=== PATIENT | female | born 1955 | race Caucasian/White ===

== ENCOUNTER 2016-10-16 10:57 | Outpatient (CLI) | payer SELFPAY ==
[2016-10-16] MEDS ORDERED: SODIUM CHLORIDE 0.9% 1,000 ML BAG IVS ONE (11:20)
[2016-10-16] MEDS ORDERED: ONDANSETRON INJ 4 MG/2 ML VIAL IV ONE (11:21)
== END 2016-10-16 12:25 | disposition home or self-care (01) ==
LOC: TXRM 10:57
PROVIDERS: ATTEND Nurse Practitioner Family
DX: E86.0 Dehydration (principal)

== ENCOUNTER → 2016-10-20 | Outpatient (CLI) | payer SELFPAY | LOC: YCFC.O 09:53 | PROVIDERS: ATTEND Nurse Practitioner Family | DX: J44.1 Chronic obstructive pulmonary disease with (acute) exacerbation (principal) ==

== ENCOUNTER 2016-10-21 09:45 | Inpatient (IN) | payer OTHER, SELFPAY ==
[2016-10-21] MEDS ORDERED: IPRATROPIUM/ALBUTEROL 3 ML VIAL NEB ONE (09:55)
--- NOTE | 2016-10-21 10:37 | RAD ---
EXAM DESCRIPTION: XR CHEST 2 VIEWS CLINICAL HISTORY: sob COMPARISON: None Available. TECHNIQUE: PA/lateral FINDINGS: There is no cardiac or pulmonary abnormality. The lungs are clear. There is no effusion. IMPRESSION: No acute findings on today's study. Electronically signed by: Darshan Rai MD 10/21/2016 10:35
[2016-10-21] MEDS ORDERED: ONDANSETRON ODT 8 MG TAB SL SCH (11:00)
[2016-10-21] MEDS ORDERED: CEFEPIME 1 GM in SODIUM CHLORIDE 0.9% 50ML 50 ML IVPB ONE (11:22)
[2016-10-21] MEDS ORDERED: AZITHROMYCIN IV 500 MG in SODIUM CHLORIDE 0.9% 250ML 250 ML IVPB ONE (11:22)
[2016-10-21] MEDS ORDERED: methylPREDNISolone SODIUM SUC 125 MG/2 ML VIAL IV ONE (11:22)
[2016-10-21] MEDS ORDERED: OSELTAMIVIR 75 MG CAP PO ONE (11:22)
--- NOTE | 2016-10-21 11:29 | ED.PDOC ---
History of Present Illness - General Chief Complaint: Respiratory Problem Stated Complaint: difficulty breathing, low BPs at home Time Seen by Provider: 10/21/16 09:54 Source: patient, family Exam Limitations: no limitations - History of Present Illness Initial Comments: The patient is a 60-year-old female presenting to the emergency room from home. She has been seen several times over the last 3 weeks at her primary care doctor's office for recurrent episodes of difficulty with breathing. She has also had gastroenteritis about a week ago. She has continued to smoke up until yesterday. She has been wearing her oxygen at night but not during the day. Oxygen saturations are down around 85% here today without oxygen. She has been doing her breathing treatments every 4 hours which are primarily albuterol. She reports fevers at home and she had a low-grade fever yesterday in clinic. She has received several doses of steroids as an outpatient as well as several doses of Rocephin. She reports having a productive sputum. she is having increasing shortness of breath with any activity. Mild runny nose and mild sore throat as well. She is feeling weak and tired. She reported having low blood pressures to her primary care clinic this morning however her blood pressures have been reassuring here since her arrival. She denies any significant cardiac history. Timing/Duration: unsure Severity: severe Improving Factors: immobilization Worsening Factors: movement Associated Symptoms: cough, fever/chills, loss of appetite, malaise, nausea/ vomiting, shortness of breath Allergies/Adverse Reactions: Allergies Levofloxacin [From Levaquin] Allergy (Verified 03/09/16 22:13) Ranitidine [From Zantac] Allergy (Verified 03/09/16 22:13) Home Medications: Ambulatory Orders Amlodipine Besylate [Norvasc] 5 mg PO DAILY 09/30/12 Fluticasone/Salmeterol 500/50 [Advair 500/50 Diskus] 1 puff INH BID #0 Ipratropium/Albuterol [Duoneb] 3 ml INH QID #0 05/20/13 Simvastatin 20 mg PO HS #0 05/20/13 Acetamin W/Cod #3 Tab [Tylenol #3 Tab] 1 ea PO Q4-6H PRN #12 tab 03/09/16 Hydrochlorothiazide 12.5 mg PO DAILY 03/09/16 Review of Systems - Review of Systems Constitutional: States: fever, malaise, weakness EENTM: States: nose congestion, throat pain - mild Respiratory: States: cough, orthopnea - questionable, short of breath, wheezing Cardiology: States: chest pain - with cough only, edema - mild since steroid use Gastrointestinal/Abdominal: States: nausea Genitourinary: States: no symptoms reported Musculoskeletal: States: no symptoms reported Skin: States: no symptoms reported Neurological: States: no symptoms reported Endocrine: States: no symptoms reported All other Systems: No Change from Baseline Past Medical History (General) - Patient Medical History Hx Seizures: No Hx Stroke: No Hx Asthma: Yes Hx of COPD: Yes Hx Cardiac Disorders: Yes - high cholesterol Hx Congestive Heart Failure: Yes Hx Pacemaker: No Hx Hypertension: Yes Hx Diabetes: No Hx Cancer: No Hx MRSA: No MRSA Source:: Wound - Vaccination History Hx Tetanus, Diphtheria Vaccination: No Hx Influenza Vaccination: No Hx Pneumococcal Vaccination: No - Social History Hx Tobacco Use: Yes Hx Alcohol Use: No Hx Substance Use: No Hx Physical Abuse: No Hx Emotional Abuse: No - Female History Patient is a Female of Child Bearing Age (10 -59 yrs old): No Family Medical History - Family History Father Living Status: Cause of : [place] Hx Family Hypertension: Yes Mother Living Status: Cause of : Cardiac Hx Family Hypertension: Yes Hx Family Stroke: Yes Hx Family Diabetes: Yes Physical Exam - Physical Exam General Appearance: Alert, Obvious distress, Ill Appearing Eye Exam: bilateral normal Ears, Nose, Throat: hearing grossly normal, nasal congestion Neck: full range of motion, supple Respiratory: chest non-tender, respiratory distress, decreased breath sounds, accessory muscle use, crackles, rhonchi, wheezing Cardiovascular/Chest: normal peripheral pulses, regular rate, rhythm Peripheral Pulses: radial,right: 2+, radial,left: 2+, dorsalis pedis,right: 2+, dorsalis pedis,left: 2+ Gastrointestinal/Abdominal: non tender, soft - morbidly obese Rectal Exam: deferred Back Exam: normal inspection Extremity: normal range of motion, non-tender, normal inspection, no calf tenderness, normal capillary refill, pedal edema - +1 bilaterally Neurologic: alert, normal mood/affect, oriented x 3 Skin Exam: normal color Comments: Vital Signs - 24 hr 10/21/16 10/21/16 10/21/16 09:45 09:46 10:40 Temperature 98.8 F Pulse Rate [ 106 H 104 H Left Radial] Respiratory 30 H 30 H 30 H Rate Blood Pressure 133/78 145/85 [Left Arm] O2 Sat by Pulse 88 L 95 Oximetry 10/21/16 11:10 Temperature Pulse Rate [ Left Radial] Respiratory Rate Blood Pressure [Left Arm] O2 Sat by Pulse 88 L Oximetry Progress - Progress Progress: 10/21/16 11:31 the patient is a 60-year-old female presenting with what essentially appears to be a COPD exacerbation likely being propagated by the flu. The patient is being started on Tamiflu. The patient will be placed on steroids, breathing treatments and oxygen as well. Due to the fact that the patient has had multiple exacerbations over the last 3 weeks, the fluid is likely not the only contributing pathogen. The patient is therefore going to be covered with cefepime and azithromycin for bacterial potential pathogens. Blood cultures have been performed. Sputum culture still need to be collected. The patient is showing some improvement after her breathing treatments here. She of course needs to stop smoking. She does need oxygen all day at this point. Departure - Departure Clinical Impression: Influenza, Respiratory distress COPD (chronic obstructive pulmonary disease) Qualifiers: COPD type: COPD with acute lower respiratory infection Qualifier Code: (J44.0) Chronic obstructive pulmonary disease with acute lower respiratory infection Disposition: Admit Patient Home Medications: Ambulatory Orders Amlodipine Besylate [Norvasc] 5 mg PO DAILY 09/30/12 Fluticasone/Salmeterol 500/50 [Advair 500/50 Diskus] 1 puff INH BID #0 Ipratropium/Albuterol [Duoneb] 3 ml INH QID #0 05/20/13 Simvastatin 20 mg PO HS #0 05/20/13 Acetamin W/Cod #3 Tab [Tylenol #3 Tab] 1 ea PO Q4-6H PRN #12 tab 03/09/16 Hydrochlorothiazide 12.5 mg PO DAILY 03/09/16 Decision To Admit - Decistion To Admit Decision to Admit Reason: Medical Nature Decision to Admit Date: 10/21/16 Decision to Admit Time: 11:33
[2016-10-21] MEDS ORDERED: SODIUM CHL 0.9% 50ML VIAL 12 ML, ALBUTEROL SULFATE NEBS 7.5 MG NEB ONE ×2 (12:24)
[2016-10-21] MEDS ORDERED: ALBUTEROL SULFATE 2.5 MG/3 ML VIAL NEB ONE (12:43)
[2016-10-21] MEDS ORDERED: SODIUM CHLORIDE 0.9% 50 ML VIAL ONE (12:44)
[2016-10-21] MEDS ORDERED: SODIUM CHLORIDE 0.9% 250ML 250 ML ONE (13:05)
[2016-10-21] MEDS ORDERED: AZITHROMYCIN IV 500 MG VIAL IVPB ONE (13:05)
[2016-10-21] MEDS ORDERED: OSELTAMIVIR 75 MG CAP ONE (13:08)
[2016-10-21] MEDS ORDERED: methylPREDNISolone SODIUM SUC 40 MG/ML VIAL ONE (13:08)
--- NOTE | 2016-10-21 13:34 | HP ---
SUPERVISING PHYSICIAN: Patricia Be MD CHIEF COMPLAINT: Difficulty breathing. HISTORY OF PRESENT ILLNESS: Ms. Sanders is a 60-year-old, female who presented to the Emergency Department from home via privately owned vehicle. She notes she has been having increasing difficulty breathing. She has been seen several times in the last three weeks at [facility]. She does have a history of smoking and has done so up until yesterday. She does wear oxygen at home given a history of significant chronic obstructive pulmonary disease with emphysema and bronchitis. It was noted last night that she was wearing oxygen at night, but not during the day and oxygen saturations were down to 85% in the Emergency Room without oxygen. She had been doing breathing treatments every 4 hours with albuterol and also reports fevers at home and was noted to have a low grade fever the previous day in the clinic. She has also received several doses of steroids as an outpatient as well as several doses of Rocephin. She now reports she is having a significantly productive sputum and increasing shortness of breath with any activity as well as a mild runny nose and mild sore throat. She also noted she had a low blood pressure in the clinic, however, her blood pressure was fairly normal in the Emergency Room at time of admission. She denied any chest pains. Laboratory studies completed in the Emergency Room included a CBC that showed white count normal at 6.9, hemoglobin 14.2, hematocrit 42.4, platelet count within normal limits as well as differential showed no left shift. Coagulation studies showed a slightly elevated D-dimer at 256, blood gas indicated an uncomplicated respiratory acidosis with pH 7.32, PCO2 66, PO2 86, bicarb 33. Saturation 93% on 3 liters nasal cannula. Chemistries showed just a mildly low potassium at 3.3. She had influenza A and B PCR rapid screen completed and this showed positive for influenza A, but negative for B. X-ray performed in the Emergency Department prior to admission per radiology interpretation showed lungs clear and no notable effusion. Vital signs showed the patient to be afebrile on admission with blood pressure 133/78. Given the patient's symptoms of fever, positive influenza A and exacerbation of chronic obstructive pulmonary disease over the last several weeks having failed to respond to any outpatient treatment plan significantly, the patient is now going to be admitted to the Medical/Surgical Floor for continued treatment and evaluation of acute exacerbation of chronic obstructive pulmonary disease with influenza A, concerning for early development of pneumonia. PAST MEDICAL HISTORY: 1. Chronic obstructive pulmonary disease. 2. Hypertension. 3. Sleep apnea. PAST SURGICAL HISTORY: 1. Hysterectomy in 1978. 2. Unilateral oophorectomy prior to hysterectomy. 3. Colonoscopy. CURRENT MEDICATIONS: 1. Hydrochlorothiazide 25 mg daily. 2. Aspirin 81 mg daily. 3. Prednisone 15 mg daily. 4. DuoNeb 3 mL inhaled q.i.d. 5. Simvastatin 20 mg at bedtime. 6. Norvasc 5 mg daily. ALLERGIES: LEVAQUIN, RANITIDINE. FAMILY HISTORY: Colon cancers run in the family as well as diabetes, coronary artery disease, and multiple sclerosis. She has a sister who has multiple sclerosis as well as coronary artery disease and has had previous four vessel bypass. A brother at age 41 with colon cancer. Her father at age 41 with a myocardial infarction. Her mother at age 83 with aortic aneurysm. SOCIAL HISTORY: The patient lives in [place]. She started smoking when she was 9 or 10 years old and has continued since. She smokes approximately one pack of cigarettes per day. She is . She denies any drinking of alcohol. REVIEW OF SYSTEMS: CONSTITUTIONAL: She notes she has had some fever, chills, and general malaise. HEENT: Denies visual disturbances, but notes headaches, runny nose and mild sore throat. Denies neck pain or stiffness. CARDIOVASCULAR : Denies chest pain or syncopal episodes. RESPIRATORY: As noted in history of present illness, worsening shortness of breath. GASTROINTESTINAL: Denies nausea or vomiting. No diarrhea, hematochezia, melena or constipation. GENITOURINARY: Denies hematuria, polyuria. MUSCULOSKELETAL: Noted joint aches , muscle pains, generalized, as noted in history of present illness. NEUROLOGIC : She denies any significant syncopal episodes, falling, or any neurologic deficits. PHYSICAL EXAMINATION: VITAL SIGNS: In the Emergency Department initially on admission pulse 106. Temperature 98.8. Blood pressure 133/78. Respirations initially 30. O2 saturation 88% on room air. After starting nasal cannula at 2 liters, she increased to 93% with continued shortness of breath and continued until she had continuous albuterol treatment for one hour. Weight admission 92.3 kg. GENERAL: The patient is in obvious distress. She appears to feel very ill, but is alert. She does improve dramatically with continuous breathing treatment and on admission to the Medical/Surgical Floor was in much less distress. HEENT: Tympanic membranes clear bilaterally. Oropharynx is pink, moist with some nasal congestion. Posterior pharynx is mildly erythematous, but no drainage is noted. CHEST: Decreased breath sounds throughout with obvious wheezing on both inspiratory and especially phases and some rhonchi heard bilaterally. CARDIOVASCULAR: Regular rate and rhythm without any appreciable murmurs, gallops, or rubs. ABDOMEN: Obese, but soft, nontender. Positive bowel sounds. EXTREMITIES: There is no cyanosis, clubbing or edema. NEUROLOGIC: The patient is alert and oriented times three. Cranial nerves II- XII are grossly intact. Facial features are symmetrical. Extraocular movements are within normal limits. There is no nystagmus. There is no notable focal deficits. LABORATORY: CBC shows white count 6.9, hemoglobin 14.2, hematocrit 42.4, platelet count 255,000. Differential shows no left shift, however, monocytes are elevated. Lymphocytes were low. Coagulation studies show PT 12, INR 1.0, PT-T 32.3. Blood gas showed pH 7.32, bicarb 33, CO2 86, PCO2 66, O2 saturation 96% on 2 liters nasal cannula. Chemistries show potassium 3.3, sodium normal at 139, BUN 12, creatinine 0.7, glucose 153, liver function tests within normal limits. Magnesium 2.1. Cardiac enzymes within normal limits with troponin less than 0.02. Urine pending. MICROBIOLOGY: Blood cultures times two are pending. Influenza A and B rapid test by PCR indicated influenza A patient, negative for influenza B. RADIOLOGY: Chest x-ray in the Emergency Department prior to admission showed no acute findings on current study. ASSESSMENT: 1. Acute exacerbation of chronic obstructive pulmonary disease having failed to respond to outpatient treatment plan with positive influenza A test. 2. Influenza A illness with concerns for pneumonia in a patient with severe chronic obstructive pulmonary disease. 3. Hypertension. PLAN: The patient will be admitted to the Medical/Surgical Floor. Upon admission to the Medical/Surgical Floor, she will be started on albuterol 7.5 mg q.1h. until improved as well as BiPAP as needed. She will be started on q.i.d. DuoNeb treatments thereafter and p.r.n. as needed. She will provided aggressive pulmonary hygiene and placed in droplet isolation give the fact that she has a positive flu test. She will be started on cefepime as she is high risk for pseudomonas given the advanced chronic obstructive pulmonary disease and having failed to respond to any treatment plan now with a productive cough and purulent sputum. We will await sputum culture to further target antibiotic therapy and monitor closely. Anticipated length of stay is at least two to three days. Until then, we will continue to monitor the patient closely and treat appropriately. #[id number] [facility]
[2016-10-21] MEDS ORDERED: ALBUTEROL SULFATE 2.5 MG/3 ML VIAL NEB PRN (14:11)
[2016-10-21] MEDS ORDERED: ACETAMINOPHEN 325 MG TAB PO PRN (14:11)
[2016-10-21] MEDS: IV SET AND CAP CHANGE INJ INJ SCH (15:52)
[2016-10-21] MEDS: KCL 20MEQ/0.45% NS 1,000 ML IVS PRN (15:52)
[2016-10-21] MEDS ORDERED: SODIUM CHL 0.9% 50ML MIN-BAG+ 50 ML IVPB ONE ×2 (16:20→20:19)
[2016-10-21] MEDS ORDERED: CEFEPIME 2 GM VIAL IVPB ONE ×2 (16:20→20:19)
[2016-10-21] MEDS: CEFEPIME 2 GM in SODIUM CHL 0.9% 50ML MIN-BAG+ 50 ML IVPB SCH (17:24)
[2016-10-21] MEDS: IPRATROPIUM/ALBUTEROL 3 ML VIAL NEB SCH ×2 (18:00→21:41)
[2016-10-21] MEDS: methylPREDNISolone SODIUM SUC 125 MG/2 ML VIAL IV SCH (19:35)
[2016-10-21] MEDS: SODIUM CHLORIDE 0.9% (FLUSH) 10 ML SYG IV PRN (19:35)
[2016-10-21] MEDS: OSELTAMIVIR 75 MG CAP PO SCH (20:58)
--- NOTE | 2016-10-21 21:22 | PCM.CORE ---
Physician DVT/VTE - Nurse DVT Assessment & Total Each Risk Factor Represents 3 Points: Medical PT with Hx of AK, CHF, Severe infection/sepsis Each Risk Factor Represents 2 Points: Age 60-74 Each Risk Factor Represents 1 Point: Medical PT at Bed Rest, Hx of smoking past year Each Risk Factor is 1 Point: Obesity (BMI >25), Serious Lung disease (pnemonia < 1month, COPD, emphysema,etc) DVT Assessment Score: 9 - 5 or more Very High Risk Treatments: Early Ambulation *, Sequential Compression Device Pharmacological: Enoxaparin 40mg SQ Daily
[2016-10-21] MEDS: ENOXAPARIN SODIUM 40 MG/0.4 ML SYG SUBCU SCH (21:45)
[2016-10-21] MEDS: SIMVASTATIN 20 MG TAB PO SCH (21:45)
[2016-10-21] MEDS ORDERED: ONDANSETRON INJ 4 MG/2 ML VIAL IV PRN (22:52)
[2016-10-22] MEDS: methylPREDNISolone SODIUM SUC 125 MG/2 ML VIAL IV SCH ×4 (01:43→20:04)
[2016-10-22] MEDS: CEFEPIME 2 GM in SODIUM CHL 0.9% 50ML MIN-BAG+ 50 ML IVPB SCH ×2 (04:43→16:51)
[2016-10-22] MEDS: KCL 20MEQ/0.45% NS 1,000 ML IVS PRN ×2 (04:43→16:55)
--- NOTE | 2016-10-22 07:41 | RAD ---
Study: Frontal and Lateral Views of the Chest. Indication: Pneumonia Comparison: October 21, 2016. Impression: Heart size upper limits normal without failure. Mild bibasilar atelectasis, otherwise lungs clear. Osteopenia. If this is a new finding, DEXA scan recommended as well as evaluation for possible osteoporosis treatment. Electronically signed by: Matt Osborne MD 10/22/2016 07:40
[2016-10-22] MEDS ORDERED: ASPIRIN (CHEWABLE) 81 MG TAB ONE (07:45)
[2016-10-22] MEDS ORDERED: SODIUM CHL 0.9% 50ML MIN-BAG+ 50 ML IVPB ONE (07:45)
[2016-10-22] MEDS ORDERED: CEFEPIME 2 GM VIAL IVPB ONE (07:46)
[2016-10-22] MEDS ORDERED: hydroCHLOROthiazide 25 MG TAB ONE (07:46)
[2016-10-22] MEDS ORDERED: AZITHROMYCIN 250 MG TAB PO ONE (07:46)
[2016-10-22] MEDS ORDERED: amLODIPine BESYLATE 5 MG TAB ONE (07:46)
[2016-10-22] MEDS: OSELTAMIVIR 75 MG CAP PO SCH ×2 (08:30→20:56)
[2016-10-22] MEDS: hydroCHLOROthiazide 25 MG TAB PO SCH (08:30)
[2016-10-22] MEDS: amLODIPine BESYLATE 5 MG TAB PO SCH (08:30)
[2016-10-22] MEDS: ASPIRIN (CHEWABLE) 81 MG TAB PO SCH (08:30)
[2016-10-22] MEDS: IPRATROPIUM/ALBUTEROL 3 ML VIAL NEB SCH ×4 (08:35→21:30)
[2016-10-22] MEDS: AZITHROMYCIN 250 MG TAB PO SCH (09:39)
[2016-10-22] MEDS: ENOXAPARIN SODIUM 40 MG/0.4 ML SYG SUBCU SCH (20:56)
[2016-10-22] MEDS: SIMVASTATIN 20 MG TAB PO SCH (20:57)
--- NOTE | 2016-10-22 22:01 | PN ---
DATE: 10/22/16 SUPERVISING PHYSICIAN: Jean-Claude Chirinos M.D. SUBJECTIVE: The patient is lying in bed. She is asleep. She awakens easily. She complains of shortness of breath and being very tired. She said today she just wants to sleep. She denies any chest pain or abdominal pain. No dizziness or headache. Otherwise she states that she does feel like she is some better, but she still is extremely tired. Nursing attempted to put her on BiPAP several times last night due to low saturations, but she refused it most of the time. OBJECTIVE: VITAL SIGNS: She is afebrile, heart rate 99, blood pressure 104/63, respiratory rate 20, O2 sat is 88% on 2 liters nasal cannula. GENERAL: This is a 60 year-old female patient who is lying in her hospital bed. She is in no acute distress. RESPIRATORY: Diminished bilaterally with a few expiratory wheezes in the apices and a few scattered rhonchi heard throughout all lung kelley. CARDIAC: Regular rate and rhythm. ABDOMEN: Soft, nondistended , non-tender. Bowel sounds are positive. EXTREMITIES: No cyanosis, clubbing or edema. NEUROLOGIC: The patient is awake, alert and oriented times three. LABORATORY: CBC is stable with the exception that she now has a left shift. Chemistries show sodium 139, potassium 5.3, chloride 100, carbon dioxide 33, BUN 11, creatinine 0.46, glucose 146. Chest x-ray shows mild bibasilar atelectasis and heart size is upper limits of normal without failure. All other labs and films have been reviewed via the EMR. ASSESSMENT: 1. Acute exacerbation of chronic obstructive pulmonary disease having failed outpatient treatment. 2. Influenza A illness. 3. Hypertension. PLAN: We will continue aggressive pulmonary toilet. She has been instructed to use the BiPAP if needed overnight to improve her oxygenation. I have tapered down her IV steroids. She will continue on Cefepime and we will monitor her cultures as they become available. I have encouraged her to stop smoking. I have reordered labs and x-ray in the morning. I have also stopped her IV fluids. We will continue present supportive care and monitor and treat as needed. Dr. Chirinos is the collaborating physician available for consultation. #[id number] [facility]
[2016-10-23] MEDS: methylPREDNISolone SODIUM SUC 125 MG/2 ML VIAL IV SCH ×4 (02:20→20:38)
[2016-10-23] MEDS ORDERED: SODIUM CHL 0.9% 50ML MIN-BAG+ 50 ML IVPB ONE ×3 (05:22→23:36)
[2016-10-23] MEDS ORDERED: CEFEPIME 2 GM VIAL IVPB ONE ×3 (05:23→23:37)
[2016-10-23] MEDS: CEFEPIME 2 GM in SODIUM CHL 0.9% 50ML MIN-BAG+ 50 ML IVPB SCH ×2 (05:32→17:40)
--- NOTE | 2016-10-23 07:10 | RAD ---
EXAM: Two view chest. INDICATION: Chest pain. COMPARISON: Chest x-ray: 10/22/2016. FINDINGS: Cardiac silhouette: Unremarkable. Addie: Unremarkable. Lobar consolidation: None.Pleural effusion: None.Pneumothorax: None.Other: None. Bones: Unremarkable. Other: None. IMPRESSION: 1. No acute cardiopulmonary process. Electronically signed by: Kwame Iniguez MD 10/23/2016 7:09 AM [facility]
[2016-10-23] MEDS: ASPIRIN (CHEWABLE) 81 MG TAB PO SCH (08:59)
[2016-10-23] MEDS: OSELTAMIVIR 75 MG CAP PO SCH ×2 (08:59→20:40)
[2016-10-23] MEDS: amLODIPine BESYLATE 5 MG TAB PO SCH (08:59)
[2016-10-23] MEDS: SODIUM CHLORIDE 0.9% (FLUSH) 10 ML SYG IV SCH ×2 (09:00→20:39)
[2016-10-23] MEDS: hydroCHLOROthiazide 25 MG TAB PO SCH (09:03)
[2016-10-23] MEDS: IPRATROPIUM/ALBUTEROL 3 ML VIAL NEB SCH ×4 (09:12→21:15)
[2016-10-23] MEDS: AZITHROMYCIN 250 MG TAB PO SCH (10:09)
[2016-10-23] MEDS: SIMVASTATIN 20 MG TAB PO SCH (20:40)
[2016-10-23] MEDS: ENOXAPARIN SODIUM 40 MG/0.4 ML SYG SUBCU SCH (21:59)
[2016-10-24] MEDS: CEFEPIME 2 GM in SODIUM CHL 0.9% 50ML MIN-BAG+ 50 ML IVPB SCH ×2 (05:19→17:48)
[2016-10-24] MEDS: SODIUM CHLORIDE 0.9% (FLUSH) 10 ML SYG IV PRN (05:23)
[2016-10-24] MEDS: IPRATROPIUM/ALBUTEROL 3 ML VIAL NEB SCH ×4 (08:32→21:19)
--- NOTE | 2016-10-24 08:46 | PN ---
SUPERVISING PHYSICIAN: Jean-Claude Chirinos MD DATE: 10/23/16 SUBJECTIVE: The patient is walking around in her room. She looks much improved since yesterday. She states her fatigue is not nearly as bad as it was yesterday and she does feel much better although she does have a very productive cough as well as some shortness of breath with any exertion. She also gets very weak with exertion, but otherwise she continues to improve daily. After a long discussion on her smoking cessation, she has quit smoking in the past on Wellbutrin and she would like to try that again. OBJECTIVE: VITAL SIGNS: Afebrile. Heart rate 69. Blood pressure 118/76. Respiratory rate 20. O2 saturation 90% on 2 liters nasal cannula. LUNGS: Very coarse sounds throughout all lung kelley with diffuse expiratory wheezing throughout. CARDIAC: Regular rate and rhythm. ABDOMEN: Soft, nontender, nondistended. Bowel sounds are positive. EXTREMITIES: No cyanosis, clubbing or edema. NEUROLOGIC: Awake, alert and oriented times three. LABORATORY: Sodium 139, potassium 4.8, chloride 97, carbon dioxide 39, BUN 11, creatinine 0.48, random glucose 154. WBC 4.9, hemoglobin 13.4, hematocrit 41. She continues to have a left shift. Chest x-ray shows no acute cardiopulmonary processes. Preliminary blood cultures after 48 hours show no growth. All other labs and films have been reviewed via the EMR. ASSESSMENT: 1. Acute exacerbation of chronic obstructive pulmonary disease having failed outpatient treatment. 2. Influenza A illness. 3. Hypertension. 4. Chronic tobacco abuse. PLAN: The patient has continued to improve although she still has low oxygen saturations and she continues to get short of breath with any exertion. I will encourage good pulmonary toilet. We discussed at length her smoking cessation and I will start her on Wellbutrin. She will need 3 days of the 150 and then she will need to increase it to 300 daily. She has had success on that in the past. I will hold off on ordering a chest x-ray or labs in the morning as those both seem to be stable and we will just need to continue to follow her clinically. I will decrease her prednisone and she will need to go home on a prednisone taper. We will continue to monitor the patient closely and followup as needed. #[id number] [facility]
[2016-10-24] MEDS: predniSONE 20 MG TAB PO SCH (09:58)
[2016-10-24] MEDS: AZITHROMYCIN 250 MG TAB PO SCH (09:59)
[2016-10-24] MEDS: hydroCHLOROthiazide 25 MG TAB PO SCH (09:59)
[2016-10-24] MEDS: SODIUM CHLORIDE 0.9% (FLUSH) 10 ML SYG IV SCH ×2 (09:59→20:59)
[2016-10-24] MEDS: amLODIPine BESYLATE 5 MG TAB PO SCH (09:59)
[2016-10-24] MEDS: OSELTAMIVIR 75 MG CAP PO SCH ×2 (09:59→20:58)
[2016-10-24] MEDS: Wellbutrin XL 150 MG TAB PO SCH (09:59)
[2016-10-24] MEDS: ASPIRIN (CHEWABLE) 81 MG TAB PO SCH (09:59)
[2016-10-24] MEDS ORDERED: SODIUM CHL 0.9% 50ML MIN-BAG+ 50 ML IVPB ONE (11:56)
[2016-10-24] MEDS ORDERED: CEFEPIME 2 GM VIAL IVPB ONE (11:56)
[2016-10-24] MEDS: IV SET AND CAP CHANGE INJ INJ SCH (14:30)
[2016-10-24] MEDS: SIMVASTATIN 20 MG TAB PO SCH (20:58)
--- NOTE | 2016-10-24 21:06 | PN ---
DATE: 10/24/16 SUPERVISING PHYSICIAN: Jose Be M.D. SUBJECTIVE: The patient is lying in bed this morning. She feels like she is making some progress. She is able to actually lie down and sleep at times, but requires to sit up when she gets short of breath. She continues to wheeze and require oxygen, but she does remain afebrile. OBJECTIVE: VITAL SIGNS: T max 98.8, pulse 72, blood pressure 117/60, respirations 20 showing 96% O2 saturation on nasal cannula at rest. I's and O' s show a positive balance of 1402 today with 2802 in, 1400 out. She has had 1 bowel movement. Weight is 95.1 kg. CHEST: Lungs are much more improved in regards to aeration, however she continues with very coarse sounds throughout with expiratory wheezing which is more notable in the right apices today. CARDIAC: Regular rate and rhythm. ABDOMEN: Obese but soft, non-tender. Positive bowel sounds. EXTREMITIES: No clubbing, cyanosis or edema. NEUROLOGIC : She is alert and oriented times three. LABORATORY: CBC shows a normal white count of 4.9, hemoglobin 13.4, hematocrit 41.0, platelet count 204,000. Differential does continue to show a left shift. Chemistries show potassium 4.8, BUN 11, creatinine 0.4, glucose 154, calcium 8.5, magnesium 2.2. Liver functions showed to be within normal limits. MICROBIOLOGY: Blood cultures times 2 remain negative after 3 days. RADIOLOGY: There is no repeat chest x-ray today. Will plan to repeat one in the morning. ASSESSMENT: 1. Acute exacerbation of chronic obstructive pulmonary disease having failed outpatient treatment complicated by Influenza A infection. 2. Positive Influenza A illness. 3. Hypertension, stable. 4. Chronic tobacco abuse with the patient having been started on Wellbutrin requesting assistance with smoking cessation. PLAN: The patient continues to show slow improvement and her oxygenation levels are better, but she continues to be significantly short of breath with any exertional effort. She will continue with aggressive pulmonary hygiene. Will anticipate hopefully discharging tomorrow. She will be finished with antibiotic regimen to include Azithromycin. At time of discharge, she can discharge with second or third generation as appropriate for continuation of completion of antibiotics. Will recheck labs and a chest x-ray in the morning, and continue to follow closely. Her prednisone has been decreased to 40 mg daily and will need to continue at time of discharge. Until discharge, will continue to follow the patient closely and treat appropriately. At time of discharge, the patient will need close clinical followup with her primary care provider at [facility]. #[id number] [facility]
[2016-10-24] MEDS: ENOXAPARIN SODIUM 40 MG/0.4 ML SYG SUBCU SCH (21:58)
[2016-10-25] MEDS ORDERED: SODIUM CHL 0.9% 50ML MIN-BAG+ 50 ML IVPB ONE (05:15)
[2016-10-25] MEDS ORDERED: CEFEPIME 2 GM VIAL IVPB ONE (05:16)
[2016-10-25] MEDS: CEFEPIME 2 GM in SODIUM CHL 0.9% 50ML MIN-BAG+ 50 ML IVPB SCH (05:29)
[2016-10-25] MEDS: SODIUM CHLORIDE 0.9% (FLUSH) 10 ML SYG IV PRN (05:30)
[2016-10-25 07:02] VITALS: TEMP 98.1
[2016-10-25] MEDS: IPRATROPIUM/ALBUTEROL 3 ML VIAL NEB SCH (08:50)
--- NOTE | 2016-10-25 09:32 | RAD ---
NAME: SIXTO LEWISPROCEDURE: XR CHEST 2 VIEWSORDER DATE: 10/25/2016 7:00 AM CSTACCESSION NUMBER: [id number] CLINICAL HISTORY: Exacerbation COPD; influenza A positive INDICATION: Same as above COMPARISON: 10/23/2016 TECHNIQUE: PA and and lateral chest radiographs were obtained. FINDINGS: There is minimal discoid atelectasis/infiltrate in the lingula of the left lung, new in appearance There are no pneumothoraces or pleural effusions. The pulmonary vascularity is normal The cardiomediastinal silhouette is unremarkable for patient's age and sex. IMPRESSION: There is minimal discoid atelectasis/infiltrate in the lingula of the left lung, new in appearance Place of interpretation: Teleradiology. Electronically signed by: Karri Pathak MD 10/25/2016 9:31 AM LEAD MASSAGE THERAPIST
[2016-10-25] MEDS: ASPIRIN (CHEWABLE) 81 MG TAB PO SCH (10:10)
[2016-10-25] MEDS: amLODIPine BESYLATE 5 MG TAB PO SCH (10:10)
[2016-10-25] MEDS: predniSONE 20 MG TAB PO SCH (10:10)
[2016-10-25] MEDS: OSELTAMIVIR 75 MG CAP PO SCH (10:10)
[2016-10-25] MEDS: Wellbutrin XL 150 MG TAB PO SCH (10:10)
[2016-10-25] MEDS: SODIUM CHLORIDE 0.9% (FLUSH) 10 ML SYG IV SCH (10:11)
[2016-10-25] MEDS: AZITHROMYCIN 250 MG TAB PO SCH (10:11)
[2016-10-25] MEDS: hydroCHLOROthiazide 25 MG TAB PO SCH (10:13)
[2016-10-25 10:23] VITALS: BP 134/71; O2SAT 94
[2016-10-25] MEDS ORDERED: OSELTAMIVIR 75 MG CAP PO ONE (12:00)
--- NOTE | 2016-10-26 17:51 | DS ---
SUPERVISING PHYSICIAN: Jose Be M.D. DISCHARGE DIAGNOSIS: 1. Acute exacerbation of chronic obstructive pulmonary disease having failed outpatient treatment complicated by Influenza A infection. 2. Positive Influenza A illness contributing to number 1. 3. Hypertension, stable. 4. Chronic tobacco abuse with the patient having been started on Wellbutrin requesting assistance for smoking cessation. HISTORY OF PRESENT ILLNESS: Ms. Sanders is a 60-year-old, female patient that presented to the Emergency Department from home via privately owned vehicle. She noted that she had been having increasing difficulty breathing for several times in the last 3 weeks and had been seen at [facility]. She has a history of smoking and has done so up until the day she was admitted. She wears oxygen at home given a history of significant chronic obstructive pulmonary disease with emphysema and bronchitis. It was noted the night before admission that she was wearing oxygen at night and during the day which she normally does not do, but oxygen saturations were down to 85% upon admission to the Emergency Room without any oxygen. She had been doing several breathing treatments every 4 hours with albuterol and reports fevers at home and was noted to have a low grade fever the previous day in the clinic. She has also received several doses of steroids as an outpatient as well as several doses of Rocephin. She reports she has been having significantly productive sputum that is clear and increasing shortness of breath with minimal activity, rhinorrhea and a sore throat. She has noted that she has had a low blood pressure in the clinic, however, blood pressure in the Emergency Room was fairly normal at time of admission. She denied any chest pains. Laboratory studies completed in the Emergency Room showed a CBC with white count of 6.9. Coagulation studies showed a slightly elevated D-dimer with blood gases indicating a partially compensated respiratory acidosis with pH 7.32, PCO2 66, PO2 86 and bicarb 33. Saturations showed 93% on 3 liters nasal cannula. Chemistries showed just a mildly low potassium at 3.3. She had influenza A and B by PCR rapid screen completed that showed positive for influenza A, but negative for B. X-ray performed in the Emergency Department prior to admission per radiology interpretation showed lungs to be clear with no notable effusion. Vital signs in the Emergency Department showed the patient to be afebrile with blood pressure 133/78. Given the patient's symptoms of fever, positive influenza A and exacerbation of chronic obstructive pulmonary disease having failed to respond to treatment plans over the last several weeks in the outpatient setting , the patient was admitted to the Medical/Surgical Floor for continued treatment and evaluation with acute exacerbation of chronic obstructive pulmonary disease complicated by influenza A, concerning for possible early development of pneumonia. LABORATORY: Normal CBC on admission with no left shift. Initial white count was 6.9. CBC showed a normal white count through discharge at 4.9. She did show a left shift initially but she was started on high dose of corticosteroids. Coagulation studies showed a mildly elevated D-dimer at 256. PT and PTT were within normal limits. Blood gas showed a pH of 7.32, bicarb 33 , PO2 of 86, PCO2 of 66 with O2 sat showing 96% on 3 liters on nasal cannula. Chemistries showed a low potassium initially at 3.3 with kidneys showing BUN 12 , creatinine 0.7. Liver functions all were within normal limits. Troponin was less than 0.02. Magnesium 2.2. After treatment with IV fluids and transition to p.o. fluids at time of discharge, her potassium was 3.5 with BUN 15, creatinine 0.53, calcium 8.7. Urine on admission showed to be within normal limits except for an amount of glucose noted to be 100 and rare bacteria on microscopic exam. MICROBIOLOGY: She did have Influenza A and B testing by PCR that showed positive for Influenza A but negative for B. She had blood cultures that were drawn times 2, they remained negative at 4 days. She never produced a sputum for culture. RADIOLOGY: Initial chest x-ray on admission showed no acute findings, lungs to be clear. Repeat chest x-rays were completed and final chest x-ray on discharge per radiology interpretation showed just a minimum discoid infiltrate in the lingula of the left lung, otherwise essentially unchanged through her clinical course. HOSPITAL COURSE: Ms. Sanders was admitted from the Emergency Room for treatment of exacerbation of chronic obstructive pulmonary disease with complications secondary to Influenza A. On admission, she was noted to be in some mild distress. She was started on continuous Albuterol treatment with 7.5 mg per hour which provided her with significant assistance and improvement in her respiratory effort. She was continued on Albuterol treatments and aggressive pulmonary hygiene as well as started on Tamiflu and Cefepime antibiotic coverage for concerns for possible bacterial pneumonia. Also antibiotic coverage included Azithromycin. The patient never produced a sputum significant to culture. She did show good clinical improvement with aggressive steroids initially with 125 for 72 hours that was slowly tapered down to at time of discharge p.o. Prednisone. She was also started on Wellbutrin for assistance with smoking cessation. Ms. Baker did show slow clinical improvement but at date of discharge she had finished a full course of Azithromycin as well as 5 days of Cefepime and 5 days of Tamiflu. Clinically she had improved and was discharged in stable condition. PLAN: Ms. Baker was discharged on 10/25/16 with instructions to call [facility] to schedule an appointment this coming week. She was told to take all of her medications as previous prior to admission and encouraged to increase her activity as tolerated to help with improvement of her lung function as well as to continue with her pulmonary exercises utilizing IS. She is to wear oxygen as instructed even during the day until she was no longer significantly short of breath during the day and she was encouraged to stop smoking as to the dangers of smoking while wearing oxygen. She was started on Wellbutrin to assist in those efforts. She was also encouraged to wear a mask at home with family members to prevent any spreading of her Influenza as well as her own protection for reinfection. She was discharged in stable condition and told to return to the hospital should she have no improvement or worsening of her symptoms. At time of discharge, she was given new prescriptions includin. Prednisone 10 mg taper instructions that included initial 50 mg for 4 days as prior to admission and then start the new prescription to include 40 mg for 4 days, 30 mg for 4 days, 20 mg for 4 days and 10 mg for 4 days until completed. 2. Wellbutrin 150 mg daily, #30. 3. Tamiflu 1 pill at time of discharge for completion of 5 days course 75 mg. She was discharged in stable condition on 10/25/16. #[id number] [facility]
--- NOTE | 2016-11-23 23:46 | RAD ---
NAME: SIXTO LEWISPROCEDURE: XR CHEST 2 VIEWSORDER DATE: 10/25/2016 7:00 AM CSTACCESSION NUMBER: [id number] CLINICAL HISTORY: Exacerbation COPD; influenza A positive INDICATION: Same as above COMPARISON: 10/23/2016 TECHNIQUE: PA and and lateral chest radiographs were obtained. FINDINGS: There is minimal discoid atelectasis/infiltrate in the lingula of the left lung, new in appearance There are no pneumothoraces or pleural effusions. The pulmonary vascularity is normal The cardiomediastinal silhouette is unremarkable for patient's age and sex. IMPRESSION: There is minimal discoid atelectasis/infiltrate in the lingula of the left lung, new in appearance Place of interpretation: [facility]. Electronically signed by: Karri Pathak MD 10/25/2016 9:31 AM SLOT SUPERVISOR
--- NOTE | 2016-11-24 01:21 | RAD ---
NAME: SIXTO LEWISPROCEDURE: XR CHEST 2 VIEWSORDER DATE: 10/25/2016 7:00 AM CSTACCESSION NUMBER: [id number] CLINICAL HISTORY: Exacerbation COPD; influenza A positive INDICATION: Same as above COMPARISON: 10/23/2016 TECHNIQUE: PA and and lateral chest radiographs were obtained. FINDINGS: There is minimal discoid atelectasis/infiltrate in the lingula of the left lung, new in appearance There are no pneumothoraces or pleural effusions. The pulmonary vascularity is normal The cardiomediastinal silhouette is unremarkable for patient's age and sex. IMPRESSION: There is minimal discoid atelectasis/infiltrate in the lingula of the left lung, new in appearance Place of interpretation: Teleradiology. Electronically signed by: Karri Pathak MD 10/25/2016 9:31 AM PODIATRIC PHYSICIAN
--- NOTE | 2016-11-24 04:24 | RAD ---
NAME: SIXTO LEWISPROCEDURE: XR CHEST 2 VIEWSORDER DATE: 10/25/2016 7:00 AM CSTACCESSION NUMBER: [id number] CLINICAL HISTORY: Exacerbation COPD; influenza A positive INDICATION: Same as above COMPARISON: 10/23/2016 TECHNIQUE: PA and and lateral chest radiographs were obtained. FINDINGS: There is minimal discoid atelectasis/infiltrate in the lingula of the left lung, new in appearance There are no pneumothoraces or pleural effusions. The pulmonary vascularity is normal The cardiomediastinal silhouette is unremarkable for patient's age and sex. IMPRESSION: There is minimal discoid atelectasis/infiltrate in the lingula of the left lung, new in appearance Place of interpretation: [facility]. Electronically signed by: Karri Pathak MD 10/25/2016 9:31 AM SERVICE TECHNICIAN
--- NOTE | 2016-11-24 05:34 | RAD ---
NAME: SIXTO LEWISPROCEDURE: XR CHEST 2 VIEWSORDER DATE: 10/25/2016 7:00 AM CSTACCESSION NUMBER: [id number] CLINICAL HISTORY: Exacerbation COPD; influenza A positive INDICATION: Same as above COMPARISON: 10/23/2016 TECHNIQUE: PA and and lateral chest radiographs were obtained. FINDINGS: There is minimal discoid atelectasis/infiltrate in the lingula of the left lung, new in appearance There are no pneumothoraces or pleural effusions. The pulmonary vascularity is normal The cardiomediastinal silhouette is unremarkable for patient's age and sex. IMPRESSION: There is minimal discoid atelectasis/infiltrate in the lingula of the left lung, new in appearance Place of interpretation: [facility]. Electronically signed by: Karri Pathak MD 10/25/2016 9:31 AM PRODUCT TEST SPECIALIST
== END 2016-10-25 11:50 | disposition home or self-care (01) | DRG 190 ==
LOC: ER 09:45 → OBSVTOIN 13:33 → MS 13:33
PROVIDERS: ADMIT Nurse Practitioner Family; ATTEND Nurse Practitioner Family
DX: J44.0 Chronic obstructive pulmonary disease with (acute) lower respiratory infection (principal); J15.9 Unspecified bacterial pneumonia; E87.2 Acidosis; J44.1 Chronic obstructive pulmonary disease with (acute) exacerbation; E87.6 Hypokalemia; I11.0 Hypertensive heart disease with heart failure; I50.9 Heart failure, unspecified; E78.00 Pure hypercholesterolemia, unspecified; G47.30 Sleep apnea, unspecified; J45.909 Unspecified asthma, uncomplicated; F17.210 Nicotine dependence, cigarettes, uncomplicated; Z99.81 Dependence on supplemental oxygen; Z79.52 Long term (current) use of systemic steroids; Z79.82 Long term (current) use of aspirin; Z79.899 Other long term (current) drug therapy; Z88.1 Allergy status to other antibiotic agents; Z88.8 Allergy status to other drugs, medicaments and biological substances

== ENCOUNTER 2016-11-04 09:44 | Inpatient (IN) | payer SELFPAY ==
[2016-11-04] MEDS ORDERED: LEVALBUTEROL NEBS 1.25 MG/3 ML VIAL NEB ONE (10:04)
[2016-11-04] MEDS ORDERED: IPRATROPIUM BROMIDE NEBS 0.5 MG/2.5 ML VIAL NEB ONE (10:04)
[2016-11-04] MEDS ORDERED: ASPIRIN TABLET 325 MG TAB PO ONE (10:04)
[2016-11-04] MEDS ORDERED: METOPROLOL TARTRATE 25 MG TAB PO ONE (10:04)
[2016-11-04] MEDS ORDERED: HYDROmorphone HCL INJ 2 MG/ML VIAL IV SCH (10:30)
[2016-11-04] MEDS ORDERED: PIPERACILLIN/TAZOBACTAM 3.375 GM in SODIUM CHLORIDE 0.9% 100ML 100 ML IVPB ONE (10:50)
[2016-11-04] MEDS ORDERED: LACTATED RINGERS 500 ML IVS ONE (10:51)
--- NOTE | 2016-11-04 11:14 | RAD ---
EXAM DESCRIPTION: XR CHEST 2 VIEWS CLINICAL HISTORY: chest pain sob COMPARISON: October 25, 2016 FINDINGS: Two-view chest x-ray shows cardiomediastinal silhouette and pulmonary vasculature to be within normal limits. The lungs are normally aerated. There is a new retrocardiac increased density best seen on lateral projection not appreciated on previous exam. Tortuosity of the thoracic aorta is seen peer Costophrenic angles are sharp. Moderate disc degenerative changes of the spine are seen. IMPRESSION: New increased density in the left retrocardiac region likely represents pneumonia versus aspiration versus atelectasis. Recommend short term radiographic followup to exclude neoplastic process. Electronically signed by: Delano Hernandez MD 11/04/2016 11:11
[2016-11-04] MEDS ORDERED: PIPERACILLIN/TAZOBACTAM 3.375 GM VIAL IVPB ONE ×4 (11:33→19:38)
[2016-11-04] MEDS ORDERED: SODIUM CHLORIDE 0.9% 100ML 100 ML IVPB ONE ×4 (11:34→19:38)
--- NOTE | 2016-11-04 12:10 | ED.PDOC ---
History of Present Illness - General Chief Complaint: Chest Pain/[place] Stated Complaint: chest pain, sob Time Seen by Provider: 11/04/16 09:46 Source: patient, family Exam Limitations: no limitations - History of Present Illness Initial Comments: the patient is a 60-year-old female presenting to the emergency room primarily due to chest pain. She has been coughing significantly for the last 2 days. Last night she started to develop some left upper chest wall pain with the cough. She does have chronic shortness of breath and was recently admitted for a COPD exacerbation likely worsened with the flu. She started having a productive sputum a couple of days ago as well and has noticed a little blood tinged sputum. She is uncertain if she's had fevers but she has had some diaphoresis. She reports that she has been wearing her oxygen much she is supposed to but she has continued to smoke. She reports doing her breathing treatments every 4-6 hours and she has been directed to. Oxygen saturations are around 90% upon her arrival here with her oxygen. The patient does have very significant chest wall discomfort palpation primarily over the left pectoralis muscle. The patient does have rails at the base of her left lung. The patient's blood pressures are a little lower than they were on her last admission with her average systolic blood pressure approximately 100 here today. Additionally she is more tachycardic today than she was previously with her initial heart rates in the 130s to 140s being a sinus tachycardia. Chest pain is worse with cough. Seems to be worse with movement as well. No palpitations that she is feeling. Timing/Duration: unsure Severity: moderate Improving Factors: immobilization Worsening Factors: movement Associated Symptoms: chest pain, cough, diaphoresis, malaise, shortness of breath Allergies/Adverse Reactions: Allergies Levofloxacin [From Levaquin] Allergy (Verified 11/04/16 10:03) Ranitidine [From Zantac] Allergy (Verified 11/04/16 10:03) Home Medications: Ambulatory Orders Ipratropium/Albuterol [Duoneb] 3 ml INH QID #0 05/20/13 Simvastatin 20 mg PO HS #0 05/20/13 Aspirin [St Yuri Low Dose Aspiri] 81 mg PO DAILY 10/21/16 Hydrochlorothiazide 25 mg PO DAILY 10/21/16 Prednisone 0 mg PO DAILY 10/21/16 BuPROPion XL [Wellbutrin XL] 150 mg PO QAM #30 tab 10/25/16 predniSONE [Prednisone] See Taper PO DAILY #40 tab 10/25/16 amLODIPine BESYLATE [Norvasc] 5 mg PO DAILY 11/04/16 Review of Systems - Review of Systems Constitutional: States: fever, malaise, weakness EENTM: States: nose congestion Respiratory: States: cough, short of breath, wheezing Cardiology: States: chest pain Gastrointestinal/Abdominal: States: no symptoms reported Genitourinary: States: no symptoms reported Musculoskeletal: States: no symptoms reported Skin: States: no symptoms reported Neurological: States: no symptoms reported All other Systems: No Change from Baseline Past Medical History (General) - Patient Medical History Hx Seizures: No Hx Stroke: No Hx Asthma: Yes Hx of COPD: Yes Hx Cardiac Disorders: Yes - high cholesterol Hx Congestive Heart Failure: No Hx Pacemaker: No Hx Hypertension: Yes Hx Diabetes: No Hx Cancer: No Hx MRSA: No MRSA Source:: Wound Surgical History: no surgical history - Vaccination History Hx Tetanus, Diphtheria Vaccination: No Hx Influenza Vaccination: No Hx Pneumococcal Vaccination: Yes - Social History Hx Tobacco Use: Yes Hx Alcohol Use: No Hx Substance Use: No Hx Physical Abuse: No Hx Emotional Abuse: No - Activities of Daily Living Hospice Agency (if applicable):: None - Female History Patient is a Female of Child Bearing Age (10 -59 yrs old): No Patient : No Family Medical History - Family History Father Living Status: Cause of : [place] Hx Family Hypertension: Yes Mother Living Status: Cause of : Cardiac Hx Family Hypertension: Yes Hx Family Stroke: Yes Hx Family Diabetes: Yes Physical Exam - Physical Exam General Appearance: Alert, Ill Appearing Eye Exam: bilateral normal Ears, Nose, Throat: hearing grossly normal - mildly decreased bilaterally, normal pharynx, nasal congestion - mild Neck: non-tender, full range of motion, supple Respiratory: respiratory distress - mild, decreased breath sounds, accessory muscle use - moderate, rales - to the left lung base., wheezing - diffuse, other - left upper chest wall along the pectoralis muscle shows significant tenderness to palpation. Her chest pain that she was experiencing at home is reproducible with palpation Cardiovascular/Chest: normal peripheral pulses, no edema, tachycardia Peripheral Pulses: radial,right: 2+, radial,left: 2+, dorsalis pedis,right: 2+, dorsalis pedis,left: 2+ Gastrointestinal/Abdominal: non tender, soft Rectal Exam: deferred Back Exam: normal inspection, no vertebral tenderness, other - the patient does have muscular tenderness to the left side of her spine adjacent to T6-T12. No palpable deformity. No bruising. 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 Blood and sputum cultures are being performed. She is receiving 500 cc of lactated Ringer's. She will likely require more but we will see how she tolerates this first. She is mildly hypotensive compared to her normal blood pressures. The patient is being started on Zosyn. Continue supplemental oxygen. She is also received a Xopenex and Atrovent nebulizer treatment. The patient does not smoke. She is still on her steroid taper thus no additional steroids have currently been given. Uncertain how much of the 48, 000 white blood cell count is due to the steroid usage. Chest pain appears to be musculoskeletal however a repeat set of cardiac enzymes in 6-8 hours may be prudent along with a repeat white blood cell count. Lactic acid level was upper limits of normal. Heart rate is currently slowing. Blood pressures are holding stable. Critical care time spent for sepsis with exaggerated sinus tachycardia 25 minutes. - Results/Orders Results/Orders: Laboratory Tests 11/04/16 11/04/16 10:29 11:10 WBC 48.8 H* RBC 5.75 H Hgb 15.8 Hct 50.0 H MCV 86.9 MCH 27.4 MCHC 31.7 L RDW 14.7 H Plt Count 253 MPV 8.7 Absolute Neuts (auto) 44.50 H Absolute Lymphs (auto) 2.20 Absolute Monos (auto) 1.70 H Absolute Eos (auto) 0.00 Absolute Basos (auto) 0.40 H Neutrophils % 91.0 H Neutrophils % (Manual) 93.0 Lymphocytes % 4.6 L Lymphocytes % (Manual) 6.0 Monocytes % 3.5 Monocytes % (Manual) Not Reportable Eosinophils % 0.1 L Basophils % 0.8 Band Neutrophils 1.0 RBC Morphology Plts esdras adequate PT 10.5 INR 0.930 PTT (SP) 28.4 D-Dimer, Quantitative < 230 Sodium 134 L Potassium 4.0 Chloride 95 L Carbon Dioxide 29 Anion Gap 14.0 BUN 14 Creatinine 0.74 BUN/Creatinine Ratio 18.9 Random Glucose 152 H Serum Osmolality 271.7 L Lactic Acid 2.0 Calcium 9.3 Magnesium 1.9 Total Bilirubin 1.0 AST 25 ALT 51 Alkaline Phosphatase 69 Creatine Kinase 15 L CK-MB (CK-2) 1.5 CK-MB (CK-2) % Not Reportable Troponin I < 0.02 B-Natriuretic Peptide 13.1 Serum Total Protein 6.9 Albumin 4.1 Globulin 2.8 Albumin/Globulin Ratio 1.5 EKG shows sinus tachycardia with pulmonary strain pattern. Mildly poor R-wave progression in anterior leads. No acute ST segment changes concerning for immediate ischemia. EKG is consistent with EKG obtained a few weeks ago. Chest x-ray is consistent with COPD along with a retrocardiac infiltrate. Departure - Departure Clinical Impression: COPD (chronic obstructive pulmonary disease) Qualifiers: COPD type: COPD with acute exacerbation Qualifier Code: (J44.1) Chronic obstructive pulmonary disease with (acute) exacerbation Chest pain Qualifiers: Chest pain type: precordial chest pain Qualifier Code: (R07.2) Precordial pain Pneumonia Qualifiers: Pneumonia type: due to unspecified organism Laterality: left Lung location: lower lobe of lung Qualifier Code: (J18.9) Pneumonia, unspecified organism Sepsis Qualifiers: Sepsis type: sepsis due to unspecified organism Qualifier Code: (A41.9) Sepsis , unspecified organism Disposition: Admit Patient Home Medications: Ambulatory Orders Ipratropium/Albuterol [Duoneb] 3 ml INH QID #0 05/20/13 Simvastatin 20 mg PO HS #0 05/20/13 Aspirin [St Yuri Low Dose Aspiri] 81 mg PO DAILY 10/21/16 Hydrochlorothiazide 25 mg PO DAILY 10/21/16 Prednisone 0 mg PO DAILY 10/21/16 BuPROPion XL [Wellbutrin XL] 150 mg PO QAM #30 tab 10/25/16 predniSONE [Prednisone] See Taper PO DAILY #40 tab 10/25/16 amLODIPine BESYLATE [Norvasc] 5 mg PO DAILY 11/04/16 Decision To Admit - Decistion To Admit Decision to Admit Reason: Medical Nature Decision to Admit Date: 11/04/16 Decision to Admit Time: 12:20
[2016-11-04] MEDS ORDERED: GLUCAGON INJ 1 MG VIAL SUBCU PRN (13:05)
[2016-11-04] MEDS ORDERED: IBUPROFEN 400 MG TAB PO PRN (13:05)
[2016-11-04] MEDS ORDERED: ONDANSETRON INJ 4 MG/2 ML VIAL IV PRN (13:05)
[2016-11-04] MEDS ORDERED: DEXTROSE 50% 25 GM/50 ML SYG IV PRN (13:05)
[2016-11-04] MEDS ORDERED: ACETAMINOPHEN 325 MG TAB PO PRN (13:05)
[2016-11-04] MEDS ORDERED: SODIUM CHLORIDE 0.9% 1000ML 1,000 ML IVS ONE (13:29)
[2016-11-04] MEDS ORDERED: AZITHROMYCIN IV 500 MG in SODIUM CHLORIDE 0.9% 250ML 250 ML IVPB SCH (13:30)
--- NOTE | 2016-11-04 13:30 | HP ---
SUPERVISING PHYSICIAN: Patricia Be MD CHIEF COMPLAINT: Chest pain and shortness of breath. HISTORY OF PRESENT ILLNESS: Ms. Sanders is a 60-year-old, female who presented to the Emergency Department due to some chest pain that she experienced this morning. She notes she has been coughing significantly for the last two days. Last night, she developed a left upper chest wall pain with a cough. She does have a history of chronic shortness of breath and was recently admitted for chronic obstructive pulmonary disease exacerbation complicated by influenza A infection to [facility] on . She was treated with a five day course of cefepime and azithromycin and Tamiflu prior to discharge. She noted she started having a productive sputum a few days previous as well as noticed some blood or dave color. She is uncertain if she has had any fever, but she notes she has been having some diaphoresis. She does wear oxygen at home and was counseled on smoking cessation on previous hospitalization, but continues to smoke despite starting Wellbutrin and encouragement from both hospitalization and primary care provider. She has been doing her breathing treatments every 4 hours as directed since discharge with her oxygenation level stating in the 90s. Upon arrival, she was satting 90% on oxygen at 2 liters. The patient was having significant chest wall discomfort to palpation located primarily over the left pectoralis muscle. Blood pressure on admission was low, but review of her previous systolic blood pressures note that her systolic pressures are average in the 100s. Heart rate on admission to the Emergency Department today showed her to be tachycardic with heart rate in the 130s and 140s. Chest pain was noted to be worse with cough or with any movement. Laboratory studies initially in the Emergency Department showed she had a significant white count with leukocytosis of 48,000. However, the patient has been on an extended period of steroid tapering from previous hospitalization with both Solu-Medrol and prednisone which she was to finish this week. She is currently on 10 mg daily. Differential did show a left shift. Coagulation studies showed D-dimer to be less than 230 and PT and PT-T to be normal. Chemistries showed normal renal function with BUN 14, creatinine 0.74, lactic acid 2.0. Liver functions all within normal limits. Initial troponin was less than 0.02. EKG showed sinus tachycardia at 130s to 140s. Chest x-ray completed in the Emergency Department prior to admission per radiology interpretation showed an increased density in the left retrocardiac region likely representing pneumonia process and compared to previous exams on 10/25/16, the retrocardiac increased density was not seen. In the Emergency Department prior to admission, she was started on Zosyn after blood cultures were completed. She was given 500 mL of lactated Ringers for some mild hypotension and Xopenex and Atrovent nebulizer treatments. Chest pain was noted to be more musculoskeletal in nature, but first set of enzymes were negative. She is now to be admitted to the Medical/ Surgical Floor for post influenza pneumonia. PAST MEDICAL HISTORY: 1. Chronic obstructive pulmonary disease with recent influenza A infection and exacerbation with hospitalization on 10/25/16. 2. Hypertension. 3. Sleep apnea. PAST SURGICAL HISTORY: 1. Hysterectomy in 1978. 2. Unilateral oophorectomy prior to hysterectomy. 3. Colonoscopy. CURRENT MEDICATIONS: 1. Prednisone taper 10 mg. 2. Amlodipine 5 mg daily. 3. Simvastatin 20 mg at bedtime. 4. DuoNeb treatments q.i.d. 5. Hydrochlorothiazide 25 mg daily. 6. Wellbutrin 150 mg in the morning. 7. Aspirin 81 mg daily. ALLERGIES: LEVOFLOXACIN, RANITIDINE. FAMILY HISTORY: Significant colon cancer, diabetes, coronary artery disease and multiple sclerosis. She has a sister who has multiple sclerosis as well as coronary artery disease and has had previous four vessel bypass. A brother at age 41 with colon cancer. Her father at age 41 with a myocardial infarction. Her mother at age 83 from complications from aortic aneurysm. SOCIAL HISTORY: The patient lives in [place]. She started smoking when she was 9 or 10 years old and has continued since. She smokes approximately one pack of cigarettes per day, but is attempting to quit. She is . She denies any alcohol or illicit drug use. REVIEW OF SYSTEMS: CONSTITUTIONAL: She is unsure if she has had any fever, but she has had some sweats, diuresis at home and overall general malaise. HEENT: Denies visual disturbances, but notes headaches sometimes, but denies any current runny nose or sore throat. Denies neck pain or stiffness. CARDIOVASCULAR: Chest pains as noted in history of present illness, reproducible with position changes and cough. Denies palpitations. RESPIRATORY: As noted in history of present illness, worsening shortness of breath with more productive sputum within the last two days. GASTROINTESTINAL: Denies nausea or vomiting. No diarrhea, hematochezia, melena or constipation. GENITOURINARY: Denies hematuria, polyuria. MUSCULOSKELETAL: Denies muscle pains or general malaise, just generalized weakness. NEUROLOGIC: She denies any significant syncopal episodes, falling, or any neurologic deficits. PHYSICAL EXAMINATION: VITAL SIGNS: In the Emergency Department, temperature 99.8. Initial pulse 125. Blood pressure 105/59. Respirations 28, short of breath, shallow. O2 saturation 94% on nasal cannula at 2 liters at rest. Upon admission to the Medical/Surgical Floor, temperature was 99.9, pulse 88, blood pressure 100/61, respirations 22, saturation 93% on room air after Xopenex and Atrovent breathing treatments in the Emergency Department. Admission weight 90.7 kg. GENERAL: The patient is alert. She does appear ill, but is well-nourished and at time of admission to the Medical/Surgical Floor, she appears to be in no acute distress. HEENT: Tympanic membranes clear bilaterally. Oropharynx is pink with some notable nasal congestion. No oral lesions. NECK: No jugular venous distention. Supple with full range of motion, nontender. CHEST: Decreased breath sounds throughout with moderate rales noted to the left lung base and diffuse wheezing, more so in left upper chest. There is tenderness on palpation to the chest wall on the left, more so over the pectoralis muscle. Upon deep inspiration, she notes pain increases. CARDIOVASCULAR: Regular rate and rhythm without any appreciable murmurs, gallops, or rubs. ABDOMEN: Soft, nontender. Positive bowel sounds. EXTREMITIES: There is no cyanosis, clubbing or edema. NEUROLOGIC: The patient is alert and oriented times three. Cranial nerves II- XII are grossly intact. Facial features are symmetrical. Extraocular movements are within normal limits. There is no nystagmus. LABORATORY: White count 48.8, hemoglobin 15.8, hematocrit 50.0. Review of records at time of discharge show that her hemoglobin was 13,4, hematocrit 41.0 , white count 4.9. Today, platelet count is 253,000. She does have a left shift with 91% neutrophils and 1% bands. Coagulation studies show PT 10.5, hematocrit 28.4, D-dimer less than 230. Review of previous hospitalization showed D-dimer 256 on previous admission. Today, chemistries show sodium 134, potassium 4.0, chloride 95, CO2 29, BUN 14, creatinine 0.74. Review of previous admission records show that through that hospitalization, her carbon dioxide was elevated with final discharge being 39. Today, glucose is 152, lactic acid 2.0. Liver functions are all within normal limits. Troponin initially was less than 0.02. Urinalysis is pending. MICROBIOLOGY: Blood cultures are pending. Sputum culture pending. RADIOLOGY: Chest x-ray in the Emergency Department prior to admission with comparison of 10/25/16 shows an increased density in the left retrocardiac region, likely representing pneumonia versus possible aspiration versus atelectasis. EKG shows tachycardic rhythm with no acute ST segment changes compared to EKG obtained during previous hospitalization. ASSESSMENT: 1. Post influenza A pneumonia, community acquired with a significant leukocytosis having been recently hospitalized for influenza A and chronic obstructive pulmonary disease exacerbation with antibiotic therapy with five days of cefepime and five days of azithromycin as well as Tamiflu. There are concerns for early development of sepsis with the patient being tachycardic and showing a significant leukocytosis. 2. Chest wall pain, likely secondary to developing, worsening pneumonia as noted on radiographic studies with initial troponin less than 0.[address] changes on 12-lead EKG compared to previous admission. 3. Leukocytosis secondary to recent corticosteroid administration as well as complicated by underlying pneumonia as noted in #1. 4. Chronic tobacco abuse despite recent treatment with Wellbutrin. 5. Chronic obstructive pulmonary disease in a chronic smoker requiring chronic oxygen. 6. Hypertension. 7. Sleep apnea, not currently utilizing CPAP. PLAN: The patient will be admitted to the Medical/Surgical Floor for treatment of pneumonia complicated by previous influenza A infection. She was started on Zosyn in the Emergency Department and given that she does have a dave sputum, she will be continued on Zosyn for concerns of a pneumococcal infection along with the addition of parenteral antibiotics including azithromycin. She will be provided with very aggressive pulmonary hygiene that includes Xopenex and Atrovent q.i.d with chest physiotherapy, incentive spirometry and BiPAP as needed as well as BIPAP/CPAP breathing treatments as needed. We will continue to monitor her on telemetry and continue with laboratory studies, q.6h. troponins times two to further rule out any acute cardiac event. She will be on O2 to maintain O2 saturations greater than 92% and supplemented with BiPAP as needed. She continues on prednisone at home and this will be continued without additional dosing of Solu-Medrol today with close monitoring with the leukocytosis currently and past aggressive corticosteroid administration. Should she prove to continue to have significant dyspnea and wheezing, she certainly will be resumed on higher dose of prednisone or again Solu-Medrol as needed. We will await sputum culture. I suspect that due to the dave color or blood, these will be delayed due to the fact that they will need to be sent to a reference lab for evaluation. I have requested gram stain and the lab will try to accommodate if possible. We will anticipate length of stay to be 2 to 3 days with possible need for transfer to higher level of care should she fail to show good clinical improvement within the next 24 hours with the current antibiotic regimen. We will await sputum cultures and target antibiotic therapy accordingly and reevaluate in the morning with chest x-ray and repeat laboratory studies. Until then, we will continue to monitor the patient closely and treat appropriately. #[id number] [facility]
[2016-11-04] MEDS: LEVALBUTEROL NEBS 1.25 MG/3 ML VIAL INH SCH ×3 (13:35→20:25)
[2016-11-04] MEDS: IPRATROPIUM BROMIDE NEBS 0.5 MG/2.5 ML VIAL NEB SCH ×3 (13:35→20:25)
[2016-11-04] MEDS ORDERED: SODIUM CHLORIDE 0.9% 250ML 250 ML ONE (15:02)
[2016-11-04] MEDS ORDERED: AZITHROMYCIN IV 500 MG VIAL IVPB ONE (15:02)
[2016-11-04] MEDS: IV SET AND CAP CHANGE INJ INJ SCH (15:16)
[2016-11-04] MEDS: AZITHROMYCIN IV 500 MG in SODIUM CHLORIDE 0.9% 250ML 250 ML IVPB SCH (15:16)
--- NOTE | 2016-11-04 16:04 | PCM.CORE ---
Physician DVT/VTE - Nurse DVT Assessment & Total Each Risk Factor Represents 3 Points: Medical PT with Hx of IA, CHF, Severe infection/sepsis Each Risk Factor Represents 2 Points: Age 60-74 Each Risk Factor Represents 1 Point: Hx of smoking past year Each Risk Factor is 1 Point: Obesity (BMI >25), Serious Lung disease (pnemonia < 1month, COPD, emphysema,etc) DVT Assessment Score: 8 - 5 or more Very High Risk Treatments: Early Ambulation *, Sequential Compression Device Pharmacological: Enoxaparin 40mg SQ Daily
[2016-11-04] MEDS: INSULIN LISPRO 100 UNITS/ML PEN SUBCU SCH ×2 (16:38→21:03)
[2016-11-04] MEDS ORDERED: methylPREDNISolone SODIUM SUC 125 MG/2 ML VIAL ONE (17:06)
[2016-11-04] MEDS: NICOTINE PATCH 21 MG TD SCH (17:08)
[2016-11-04] MEDS: SIMVASTATIN 20 MG TAB PO SCH ×2 (17:10→20:35)
[2016-11-04] MEDS: ENOXAPARIN SODIUM 40 MG/0.4 ML SYG SUBCU SCH (17:10)
[2016-11-04] MEDS: KCL 20 MEQ/NS 1,000 ML IVS PRN ×2 (17:25→22:11)
[2016-11-04] MEDS: PIPERACILLIN/TAZOBACTAM 3.375 GM in SODIUM CHLORIDE 0.9% 100ML 100 ML IVPB SCH ×2 (17:26→22:30)
[2016-11-04] MEDS: HYDROcodone 5MG/APAP 325MG 1 EA TAB PO PRN ×2 (18:20→22:30)
[2016-11-04] MEDS ORDERED: PANTOPRAZOLE SODIUM IV 40 MG VIAL ONE (19:37)
[2016-11-05] MEDS: IPRATROPIUM BROMIDE NEBS 0.5 MG/2.5 ML VIAL NEB PRN (02:15)
[2016-11-05] MEDS: KCL 20 MEQ/NS 1,000 ML IVS PRN (04:05)
[2016-11-05] MEDS: PIPERACILLIN/TAZOBACTAM 3.375 GM in SODIUM CHLORIDE 0.9% 100ML 100 ML IVPB SCH ×4 (05:03→23:05)
[2016-11-05] MEDS: SODIUM CHLORIDE 0.9% 10 ML VIAL IV PRN ×3 (06:25→16:38)
[2016-11-05] MEDS: PANTOPRAZOLE SODIUM IV 40 MG VIAL IV SCH (06:25)
[2016-11-05] MEDS ORDERED: ASPIRIN (CHEWABLE) 81 MG TAB ONE (07:01)
[2016-11-05] MEDS ORDERED: Wellbutrin XL 150 MG TAB PO ONE (07:01)
[2016-11-05] MEDS ORDERED: SODIUM CHLORIDE 0.9% 250ML 0 ML ONE (07:02)
[2016-11-05] MEDS ORDERED: PIPERACILLIN/TAZOBACTAM 3.375 GM VIAL IVPB ONE ×3 (07:02→19:52)
[2016-11-05] MEDS ORDERED: amLODIPine BESYLATE 5 MG TAB ONE (07:02)
[2016-11-05] MEDS ORDERED: AZITHROMYCIN IV 500 MG VIAL IVPB ONE (07:03)
[2016-11-05] MEDS ORDERED: SODIUM CHLORIDE 0.9% 100ML 100 ML IVPB ONE ×3 (07:03→19:53)
[2016-11-05] MEDS: INSULIN LISPRO 100 UNITS/ML PEN SUBCU SCH ×4 (07:24→21:03)
--- NOTE | 2016-11-05 07:39 | RAD ---
EXAM: Two view chest. INDICATION: Chest pain. COMPARISON: Chest x-ray: 11/04/2016. FINDINGS: There is left basilar airspace opacity. The right lung is clear. The heart size is stable. There is no pneumothorax or pleural effusion. The bones are unchanged. IMPRESSION: Left basilar pneumonia Electronically signed by: Kwame Iniguez MD 11/05/2016 7:38 AM FILM MAKER
[2016-11-05] MEDS: HYDROcodone 5MG/APAP 325MG 1 EA TAB PO PRN (07:43)
[2016-11-05] MEDS: IPRATROPIUM BROMIDE NEBS 0.5 MG/2.5 ML VIAL NEB SCH ×4 (08:03→19:16)
[2016-11-05] MEDS: LEVALBUTEROL NEBS 1.25 MG/3 ML VIAL INH SCH ×4 (08:03→19:16)
[2016-11-05] MEDS: amLODIPine BESYLATE 5 MG TAB PO SCH (08:30)
[2016-11-05] MEDS: ASPIRIN (CHEWABLE) 81 MG TAB PO SCH (08:30)
[2016-11-05] MEDS: Wellbutrin XL 150 MG TAB PO SCH (08:30)
[2016-11-05] MEDS: BIFIDOBACTERIUM INFANTIS 4 MG CAP PO SCH ×2 (09:25→21:02)
[2016-11-05] MEDS: guaiFENesin ER TAB 600 MG TAB PO SCH ×2 (09:25→21:02)
[2016-11-05] MEDS ORDERED: SODIUM CHLORIDE 0.9% (FLUSH) 10 ML SYG IV SCH (09:30)
[2016-11-05] MEDS ORDERED: SODIUM CHLORIDE 0.9% 250ML 250 ML ONE (09:37)
--- NOTE | 2016-11-05 13:42 | PN ---
SUPERVISING PHYSICIAN: Jean-Claude Chirinos MD DATE: 11/05/16 SUBJECTIVE: The patient says she is feeling much better today. She is a little weak. She has had no nausea or vomiting, no abdominal pains and remains alert. She does remain afebrile. OBJECTIVE: VITAL SIGNS: T-max 99.9. Pulse 84. Blood pressure 98/61. Respirations 18. O2 saturation 97% on nasal cannula at rest. I&Os show positive balance of 1834 with 4034 in, 2200 out. Weight 93.5 kg. The patient has been saline locked and is taking adequate p.o. fluids. GENERAL: The patient is alert. She is sitting in bed and has just finished breakfast. CHEST : Lungs much clearer today. There is no obvious rales, rhonchi or wheezing noted. They are diminished towards the bases bilaterally. HEART: Regular rate and rhythm. ABDOMEN: Soft, nontender. Positive bowel sounds. EXTREMITIES: No cyanosis, clubbing or edema. NEUROLOGIC: Alert and oriented times three. LABORATORY: White count has decreased to 26.1 from admission of 48.8. Differential does continue to show a left shift. Hemoglobin 12.6, hematocrit 39.5. Chemistries normal electrolytes with potassium 3.7, BUN 12, creatinine 0.69. Blood sugars have been 107 to 181. Calcium 8.1. Troponins have all been negative, the last one being less than 0.02. Urine was within normal limits. RADIOLOGY: Chest x-ray per radiology interpretation showed left basilar pneumonia. ASSESSMENT: 1. Post influenza A with left lower lobe pneumonia, community acquired, with the patient showing improvement after staring on antibiotics to include Zosyn and azithromycin. 2. Chest wall pain with troponin levels all normal levels , felt to be secondary to underlying left lower lobe pneumonia as the pain is reproducible and intensifies with deep breathing. 3. Leukocytosis, secondary to recent corticosteroid administration as well as complicated by underlying left lower lobe pneumonia secondary to an influenza A infection, showing improvement after initiation of antibiotic therapy. 4. Chronic tobacco abuse despite recent treatment and attempts to stop utilizing Wellbutrin. 5. Chronic obstructive pulmonary disease in a chronic smoker requiring chronic oxygen. 6. Hypertension. 7. Sleep apnea, not currently utilizing CPAP. PLAN: The patient will continue with current antibiotic therapy to include Zosyn and azithromycin. We will provide her with very aggressive pulmonary hygiene including chest physiotherapy, q.i.d. breathing treatments. We will encourage her to ambulate to increase her pulmonary function and utilize her incentive spirometry. She has been started on DVT prophylaxis and her home medications have been resumed since admission. The patient is followed in the outpatient setting by [facility]. At time of discharge, recommendation will be that the patient needs to have followup with a referral to a senior support engineer given her severe underlying chronic obstructive pulmonary disease and most recent influenza A infection and current pneumonia. We will anticipate length of stay to be an additional 2 to 3 days with close clinical followup with repeat laboratory studies in the morning. Until discharge, we will continue to monitor the patient closely and treat appropriately. #[id number] [facility]
[2016-11-05] MEDS: AZITHROMYCIN IV 500 MG in SODIUM CHLORIDE 0.9% 250ML 250 ML IVPB SCH (14:46)
[2016-11-05] MEDS: NICOTINE PATCH 21 MG TD SCH (16:08)
[2016-11-05] MEDS: ENOXAPARIN SODIUM 40 MG/0.4 ML SYG SUBCU SCH (16:08)
[2016-11-05] MEDS: SIMVASTATIN 20 MG TAB PO SCH (21:02)
[2016-11-05] MEDS: SODIUM CHLORIDE 0.9% (FLUSH) 10 ML SYG IV SCH (21:02)
[2016-11-05] MEDS: SODIUM CHLORIDE 0.9% (FLUSH) 10 ML SYG IV PRN (23:10)
[2016-11-06] MEDS ORDERED: SODIUM CHLORIDE 0.9% 100ML 100 ML IVPB ONE ×4 (04:24→22:07)
[2016-11-06] MEDS ORDERED: PIPERACILLIN/TAZOBACTAM 3.375 GM VIAL IVPB ONE ×4 (04:24→22:07)
[2016-11-06] MEDS: PIPERACILLIN/TAZOBACTAM 3.375 GM in SODIUM CHLORIDE 0.9% 100ML 100 ML IVPB SCH ×4 (04:56→23:18)
[2016-11-06] MEDS: PANTOPRAZOLE SODIUM IV 40 MG VIAL IV SCH (06:04)
[2016-11-06] MEDS: SODIUM CHLORIDE 0.9% (FLUSH) 10 ML SYG IV PRN ×3 (06:05→23:17)
[2016-11-06] MEDS: LEVALBUTEROL NEBS 1.25 MG/3 ML VIAL INH SCH ×4 (06:24→19:58)
[2016-11-06] MEDS: INSULIN LISPRO 100 UNITS/ML PEN SUBCU SCH ×4 (07:00→21:39)
[2016-11-06] MEDS: IPRATROPIUM BROMIDE NEBS 0.5 MG/2.5 ML VIAL NEB SCH ×4 (08:00→19:58)
[2016-11-06] MEDS: Wellbutrin XL 150 MG TAB PO SCH (09:28)
[2016-11-06] MEDS: ASPIRIN (CHEWABLE) 81 MG TAB PO SCH (09:29)
[2016-11-06] MEDS: guaiFENesin ER TAB 600 MG TAB PO SCH (09:29)
[2016-11-06] MEDS: amLODIPine BESYLATE 5 MG TAB PO SCH (09:29)
[2016-11-06] MEDS: BIFIDOBACTERIUM INFANTIS 4 MG CAP PO SCH ×2 (09:29→21:38)
[2016-11-06] MEDS: SODIUM CHLORIDE 0.9% (FLUSH) 10 ML SYG IV SCH ×2 (09:29→21:39)
[2016-11-06] MEDS ORDERED: BENZONATATE PERLES 100 MG CAP PO PRN ×2 (10:36→10:43)
--- NOTE | 2016-11-06 11:15 | PN ---
SUPERVISING PHYSICIAN: Jean-Claude Chirinos MD DATE: 11/06/16 SUBJECTIVE: The patient is sitting up on the side of her bed. She is minimal respiratory distress. She does complain of coughing and and she has coughed so hard that the left lateral portion of her rib area is hurting. She was unable to get her Wellbutrin filled after her last admission and she had not taken it as an outpatient, but she still states she really wants to quit smoking. She denies any abdominal pain, chest pain, nausea or vomiting. OBJECTIVE: VITAL SIGNS: Afebrile. Heart rate 100. Blood pressure 97/50. Respiratory rate 18. O2 saturation 93% on 2 liters nasal cannula. GENERAL: She is awake and alert. LUNGS: Bilateral rhonchi scattered throughout with continued occasional expiratory wheezing although they are scattered. Chest is also diminished at the bases. CARDIAC: Regular rate and rhythm. ABDOMEN: Soft, nontender, nondistended. Bowel sounds are positive. EXTREMITIES: No cyanosis, clubbing or edema. NEUROLOGIC: Awake, alert and oriented times three. LABORATORY: WBC have come down to 14.9. Platelet count 127. Creatinine 0.59, glucose 108. Preliminary blood cultures are no growth after 48 hours. Sputum culture shows light growth of budding yeast. No chest x-ray reported today. All other labs and films have been reviewed via the EMR. ASSESSMENT: 1. Post influenza A with left lower lobe pneumonia, community acquired, with the patient showing improvement after staring on antibiotics to include Zosyn and azithromycin. 2. Chest wall pain with normal troponin levels, most likely secondary to left lower lobe pneumonia as well as extreme coughing. 3. Leukocytosis, secondary to recent corticosteroid administration and complicated by underlying left lower lobe pneumonia, improving. 4. Chronic tobacco abuse despite recent treatment, although she was unable to fill her Wellbutrin after her last discharge, but the Wellbutrin has been started in the hospital. 5. Chronic obstructive pulmonary disease in a chronic smoker requiring chronic oxygen. 6. Hypertension. 7. Sleep apnea, not currently utilizing CPAP. PLAN: We will continue the present antibiotic therapy of Zosyn and azithromycin. I will increase her scheduled Mucinex to 1200 mg b.i.d.. I will also add some benzonatate cough perles for her cough. I have increased her Wellbutrin to 300 mg daily. I have also ordered labs and chest x-ray for in the morning. She will need a couple of more days in the hospital with good, aggressive pulmonary toilet. She will followup at [facility] afterwards and she will need an outpatient CT of the chest. She will also need a followup pulmonary consult with Dr. Barone after discharge. We discussed smoking cessation again and she is very willing to stop with help. I also encouraged good pulmonary toilet. We continue to monitor the patient closely and followup as needed. #[id number] [facility]
[2016-11-06] MEDS ORDERED: SODIUM CHLORIDE 0.9% 250ML 250 ML ONE (15:27)
[2016-11-06] MEDS ORDERED: AZITHROMYCIN IV 500 MG VIAL IVPB ONE (15:28)
[2016-11-06] MEDS: AZITHROMYCIN IV 500 MG in SODIUM CHLORIDE 0.9% 250ML 250 ML IVPB SCH (15:55)
[2016-11-06] MEDS: ENOXAPARIN SODIUM 40 MG/0.4 ML SYG SUBCU SCH (17:20)
[2016-11-06] MEDS: NICOTINE PATCH 21 MG TD SCH (17:20)
[2016-11-06] MEDS: SIMVASTATIN 20 MG TAB PO SCH (21:38)
[2016-11-06] MEDS ORDERED: methylPREDNISolone SODIUM SUC 125 MG/2 ML VIAL IV ONE (22:43)
[2016-11-07] MEDS ORDERED: PIPERACILLIN/TAZOBACTAM 3.375 GM VIAL IVPB ONE ×4 (04:52→20:15)
[2016-11-07] MEDS ORDERED: SODIUM CHLORIDE 0.9% 100ML 100 ML IVPB ONE ×4 (04:52→20:16)
[2016-11-07] MEDS: PIPERACILLIN/TAZOBACTAM 3.375 GM in SODIUM CHLORIDE 0.9% 100ML 100 ML IVPB SCH ×3 (05:09→18:49)
[2016-11-07] MEDS: SODIUM CHLORIDE 0.9% (FLUSH) 10 ML SYG IV PRN ×2 (05:10→06:13)
[2016-11-07] MEDS: PANTOPRAZOLE SODIUM IV 40 MG VIAL IV SCH (06:13)
--- NOTE | 2016-11-07 06:56 | RAD ---
EXAM: Two view chest. INDICATION: Chest pain. COMPARISON: Chest x-ray: 11/05/2016. FINDINGS: There is a left basilar airspace opacity. The right lung is clear. The heart is normal in size. There is no pneumothorax or pleural effusion. IMPRESSION: Left basilar pneumonia Electronically signed by: Kwame Iniguez MD 11/07/2016 6:55 AM [employer]
[2016-11-07] MEDS: INSULIN LISPRO 100 UNITS/ML PEN SUBCU SCH ×4 (07:32→21:07)
[2016-11-07] MEDS: LEVALBUTEROL NEBS 1.25 MG/3 ML VIAL INH SCH ×4 (08:09→21:21)
[2016-11-07] MEDS: IPRATROPIUM BROMIDE NEBS 0.5 MG/2.5 ML VIAL NEB SCH ×4 (08:09→21:21)
[2016-11-07] MEDS: ASPIRIN (CHEWABLE) 81 MG TAB PO SCH (08:43)
[2016-11-07] MEDS: BIFIDOBACTERIUM INFANTIS 4 MG CAP PO SCH ×2 (08:43→21:07)
[2016-11-07] MEDS: predniSONE 20 MG TAB PO SCH (08:44)
[2016-11-07] MEDS: amLODIPine BESYLATE 5 MG TAB PO SCH (08:44)
[2016-11-07] MEDS: SODIUM CHLORIDE 0.9% (FLUSH) 10 ML SYG IV SCH ×2 (08:48→21:07)
[2016-11-07] MEDS: IV SET AND CAP CHANGE INJ INJ SCH (13:29)
[2016-11-07] MEDS: NON-FORMULARY RESPIRATORY MEDICATION INH SCH (13:35)
[2016-11-07] MEDS ORDERED: SODIUM CHLORIDE 0.9% 250ML 0 ML ONE (15:13)
[2016-11-07] MEDS ORDERED: AZITHROMYCIN IV 500 MG VIAL IVPB ONE (15:13)
[2016-11-07] MEDS ORDERED: SODIUM CHLORIDE 0.9% 250ML 250 ML ONE (15:18)
[2016-11-07] MEDS: AZITHROMYCIN IV 500 MG in SODIUM CHLORIDE 0.9% 250ML 250 ML IVPB SCH (15:37)
--- NOTE | 2016-11-07 15:48 | PN ---
DATE: 11/07/16 SUPERVISING PHYSICIAN: Jean-Claude Chirinos M.D. SUBJECTIVE: The patient is sitting up on the side of her bed. She is in no acute distress. States she feels much better than yesterday and has minimal shortness of breath. She is somewhat concerned about the blood sugars being elevated while being on the steroids. We discussed options about controlling her blood sugar but I assured that once she got off the steroids they would improve. Otherwise she denies chest pain, abdominal pain, nausea, vomiting or constipation. OBJECTIVE: VITAL SIGNS: She is afebrile, heart rate is running between 87 and 97 [id number]. Blood pressure 139/77, respiratory rate 20, O2 sat is 92% on 2 liters nasal cannula. GENERAL: She is awake and alert. LUNGS: Bilateral rhonchi, clear somewhat with coughing. No wheezes or crackles noted. CARDIAC: Regular rate and rhythm. ABDOMEN: Soft, nondistended, non-tender. bowel sounds are positive. NEUROLOGIC: She is awake, alert and oriented times three. LABORATORY: WBCs have normalized to 9, hemoglobin 12.6, hematocrit 38.8. Sodium 139, potassium 4.4, chloride 103, carbon dioxide 30, BUN 9, creatinine 0.69. Preliminary blood cultures after 3 days are negative. Chest x-ray shows left basilar pneumonia. All other labs and films have been reviewed via the EMR. ASSESSMENT: 1. Left lower lobe pneumonia with a prior admission for Influenza A about 2 weeks ago. Pneumonia is most likely community acquired and she continues to show very slow improvement while on antibiotics, including Zosyn and Azithromycin. 2. Leukocytosis secondary to recent corticosteroid administration and left lower lobe pneumonia that is now stabilized. 3. Chronic tobacco abuse despite recent treatment, although she was unable to fill her Wellbutrin after her last discharge. 4. Chronic obstructive pulmonary disease in a chronic smoker requiring chronic oxygen. 5. Hypertension. 6. Chest wall pain on admission with normal troponin levels. There have been no recurrences on this admission. 7. Sleep apnea not currently utilizing CPAP. PLAN: We will continue present antibiotics including Zosyn and Azithromycin. I will start her on inhaled corticosteroid and LABA which is Breo at this point. I will give her some samples and when she follows up with JOHN Miller at [facility], she will need to be put on LABA and inhaled corticosteroid of her choice. She will also need a taper of steroids when she is discharged, although the taper may need to be extended out somewhat as her lung issues are very slow to resolve. She will also need a followup Pulmonology with Dr. Barone at [facility]. She will need an outpatient chest CT and I will also need to give her a prescription for Wellbutrin. We discussed at length smoking cessation and she believes that if she can get her Wellbutrin filled, that that will help her stop smoking. I have ordered lab and x-ray in the morning. We will continue to encourage good pulmonary toilet. Hopefully she can be discharged tomorrow or the next day. Dr. Chirinos is the collaborating physician and available for consultation. #[id number] [facility]
[2016-11-07] MEDS: ENOXAPARIN SODIUM 40 MG/0.4 ML SYG SUBCU SCH (17:07)
[2016-11-07] MEDS: NICOTINE PATCH 21 MG TD SCH (17:07)
[2016-11-07] MEDS: SIMVASTATIN 20 MG TAB PO SCH (21:07)
[2016-11-08] MEDS: IPRATROPIUM BROMIDE NEBS 0.5 MG/2.5 ML VIAL NEB PRN (00:18)
[2016-11-08] MEDS: PIPERACILLIN/TAZOBACTAM 3.375 GM in SODIUM CHLORIDE 0.9% 100ML 100 ML IVPB SCH ×3 (01:04→10:50)
[2016-11-08] MEDS ORDERED: PIPERACILLIN/TAZOBACTAM 3.375 GM VIAL IVPB ONE ×2 (05:52→07:42)
[2016-11-08] MEDS ORDERED: SODIUM CHLORIDE 0.9% 100ML 100 ML IVPB ONE ×2 (05:52→07:42)
[2016-11-08] MEDS: PANTOPRAZOLE SODIUM IV 40 MG VIAL IV SCH (06:18)
[2016-11-08] MEDS: SODIUM CHLORIDE 0.9% (FLUSH) 10 ML SYG IV PRN (06:19)
[2016-11-08] MEDS: INSULIN LISPRO 100 UNITS/ML PEN SUBCU SCH ×2 (07:28→11:49)
[2016-11-08] MEDS ORDERED: hydroCHLOROthiazide 25 MG TAB ONE (07:42)
[2016-11-08] MEDS: predniSONE 20 MG TAB PO SCH (08:29)
[2016-11-08] MEDS: BIFIDOBACTERIUM INFANTIS 4 MG CAP PO SCH (08:29)
[2016-11-08] MEDS: amLODIPine BESYLATE 5 MG TAB PO SCH (08:29)
[2016-11-08] MEDS: ASPIRIN (CHEWABLE) 81 MG TAB PO SCH (08:29)
[2016-11-08] MEDS: SODIUM CHLORIDE 0.9% (FLUSH) 10 ML SYG IV SCH (08:32)
[2016-11-08] MEDS: NON-FORMULARY RESPIRATORY MEDICATION INH SCH (08:36)
[2016-11-08] MEDS: LEVALBUTEROL NEBS 1.25 MG/3 ML VIAL INH SCH (08:36)
[2016-11-08] MEDS: IPRATROPIUM BROMIDE NEBS 0.5 MG/2.5 ML VIAL NEB SCH (08:36)
[2016-11-08] MEDS ORDERED: hydroCHLOROthiazide 25 MG TAB PO SCH (09:00)
[2016-11-08 10:41] VITALS: BP 127/81; TEMP 97.9; O2SAT 94
[2016-11-08] MEDS ORDERED: AZITHROMYCIN 250 MG TAB PO ONE (10:45)
[2016-11-08] MEDS ORDERED: INFLUENZA VIRUS VACC (ADULT) 0.5 ML SYG IM ONE ×2 (11:42→11:44)
[2016-11-08] MEDS ORDERED: PNEUMOCOCCAL VACCINE 0.5 ML INJ IM ONE (11:42)
[2016-11-08] MEDS ORDERED: PNEUMOCOCCAL VACCINE 0.5 ML INJ ONE (11:44)
--- NOTE | 2016-11-08 17:48 | DS ---
SUPERVISING PHYSICIAN: Jose Be M.D. DISCHARGE DIAGNOSIS: 1. Left lower lobe pneumonia with a prior admission for Influenza A about 2 weeks ago. Pneumonia is most likely community acquired. Antibiotic therapy while in the hospital was Zosyn and Azithromycin. 2. Leukocytosis most likely due to recent corticosteroid administration and left lower lobe pneumonia that has now stabilized. 3. Chronic tobacco abuse presently on Wellbutrin. 4. Chronic obstructive pulmonary disease in a chronic smoker that requires chronic oxygen. 5. Hypertension. 6. Chest wall pain on admission with normal troponin levels. There have been no further recurrences of this during her hospital stay. 7. Sleep apnea not currently utilizing CPAP. HISTORY OF PRESENT ILLNESS: This is a 60 year-old female patient who came to the Emergency Room due to some chest pain and some coughing on the date of admission. The coughing had been quite significant over 2 days prior to her admission. She has a significant history of chronic shortness of breath and chronic obstructive pulmonary disease, and had been admitted to the hospital on 10/21/16 for exacerbation of chronic obstructive pulmonary disease that was complicated with Influenza A infection. At that point, she was treated with Cefepime and Azithromycin as well as Tamiflu and then discharged. On date of admission this time, she had a productive sputum. She does wear oxygen at home. On her prior admission, she had been given Wellbutrin in hopes that she could stop smoking, but she was unable to get her prescription filled. Upon arrival to the Emergency Room, her oxygen saturations were 90% on 2 liters nasal cannula. Her cardiac enzymes were negative. Heart rate was in the 130s and 140s. Her chest wall pain worsened with coughing and movement. She had leukocytosis with her WBCs being 48,000, but she had been on oral steroids from her previous admission. Chemistry showed a normal renal function as well as D- dimer, and PT and PTT were within normal limits. Chest x-ray per radiology interpretation showed an increase in density in the left retrocardiac region that likely represented a pneumonia process. In the Emergency Room, she was started on Zosyn after blood cultures were completed. Due to the negative cardiac enzymes, her chest wall pain was noted to be more musculoskeletal and due to coughing. She was admitted to the hospital. HOSPITAL COURSE: She was placed on breathing treatments as well as good pulmonary hygiene. She had BiPAP as needed. She was continue don her home dosing of Solu-Medrol. Sputum culture was done. She was continued on Zosyn and Azithromycin was added. She had been unable to get her Wellbutrin after her last discharge, so her Wellbutrin was started and actually increased to 300 mg daily. She was also placed on sliding scale insulin coverage for her elevated blood sugars due to the steroid administration. Over the next few days her white count went down to 26.1 to 14.9 and today is 10.6. She was also started on Breo 200/25 as she had not previously been on a LABA/inhaled corticosteroid. On , she was still quite dyspneic and had saturations that dropped into the upper 80s, but improved yesterday and today has improved to the point that she will be able to be discharged home today. She continues to be tachypneic at times and somewhat short of breath with exertion, but the dyspnea is most likely at her baseline. DISCHARGE PLAN: The patient will be discharged home in good condition. She is to continue wearing her oxygen as she needs it while at home. I have sent her home with 26 days of the Breo 200/25. When she follows up with Kati Carvajal at [facility] within the next 2 weeks, it would probably be beneficial for her to get a LABA/inhaled corticosteroid that she could afford and could use. She is also to continue her breathing treatments as well as her Mucinex. She received 5 doses of Azithromycin in the hospital so she will not go home on any antibiotics. She was somewhat concerned about her blood sugars and she can discuss that with Kati when she sees her. She does not have any glucose monitoring equipment and I believe her blood sugars with normalize after she is on a lower dose of steroids. I have given her a prescription for a very slow steroid taper. She will be on 30 mg daily for 1 week then decrease to 20 mg for 1 week, and then 10 mg daily. Given the severity of her COPD and poor followup, it might be worthwhile to stay on a 5 to 10 mg dosing of prednisone on a daily basis. I have also given her a prescription for Wellbutrin SR 150 mg b.i.d. Hopefully that will help her with smoking cessation. We discussed smoking cessation at length. She is to get an appointment with Kati Carvajal within the next 2 weeks and to continue her previous medications with the exception of the prednisone should be changed to the prescription that I have given her, and she is to take her Breo as instructed as well as her Wellbutrin SR. She is to return to [facility] or the Emergency Room if any further complications. DISCHARGE MEDICATIONS: 1. DuoNeb. 2. Simvastatin. 3. Aspirin. 4. Prednisone taper. 5. Hydrochlorothiazide. 6. Amlodipine. 7. Wellbutrin SR. 8. Breo ellipta which is Fluticasone furoate/vilanterol inhaled 200/25. #[id number] [facility]
--- NOTE | 2016-11-23 23:56 | RAD ---
EXAM: Two view chest. INDICATION: Chest pain. COMPARISON: Chest x-ray: 11/04/2016. FINDINGS: There is left basilar airspace opacity. The right lung is clear. The heart size is stable. There is no pneumothorax or pleural effusion. The bones are unchanged. IMPRESSION: Left basilar pneumonia Electronically signed by: Kwame Iniguez MD 11/05/2016 7:38 AM RADIOLOGY ASST
--- NOTE | 2016-11-23 23:58 | RAD ---
EXAM: Two view chest. INDICATION: Chest pain. COMPARISON: Chest x-ray: 11/05/2016. FINDINGS: There is a left basilar airspace opacity. The right lung is clear. The heart is normal in size. There is no pneumothorax or pleural effusion. IMPRESSION: Left basilar pneumonia Electronically signed by: Kwame Iniguez MD 11/07/2016 6:55 AM SIGNING AGENT
== END 2016-11-08 12:10 | disposition home or self-care (01) | DRG 871 ==
LOC: ER 09:44 → MS 13:29
PROVIDERS: ADMIT Nurse Practitioner Family; ATTEND Nurse Practitioner Acute Care
DX: A41.9 Sepsis, unspecified organism (principal); J18.9 Pneumonia, unspecified organism; J44.0 Chronic obstructive pulmonary disease with (acute) lower respiratory infection; J44.1 Chronic obstructive pulmonary disease with (acute) exacerbation; I10 Essential (primary) hypertension; R07.89 Other chest pain; G47.30 Sleep apnea, unspecified; F17.210 Nicotine dependence, cigarettes, uncomplicated; Z79.52 Long term (current) use of systemic steroids; Z99.81 Dependence on supplemental oxygen; Z79.82 Long term (current) use of aspirin; Z79.899 Other long term (current) drug therapy; Z88.1 Allergy status to other antibiotic agents; Z88.8 Allergy status to other drugs, medicaments and biological substances

== ENCOUNTER → 2016-12-03 | Outpatient (CLI) | payer SELFPAY | END | disposition home or self-care (01) | LOC: YCFC.O 14:57 | PROVIDERS: ATTEND Nurse Practitioner Family | DX: J44.9 Chronic obstructive pulmonary disease, unspecified (principal) ==

== ENCOUNTER → 2016-12-04 | Outpatient (CLI) | payer SELFPAY ==
--- NOTE | 2016-12-04 11:14 | CT ---
EXAM DESCRIPTION: Chest w/Contrast CLINICAL HISTORY: ABN CXR COMPARISON: chest x-ray November 07, 2016. TECHNIQUE: Postcontrast CT images of the chest are obtained. CT scan done according to ALARA (As Low As Reasonably Achievable). FINDINGS: The heart is unremarkable. Ascending thoracic aorta is within normal limits. There is mild aneurysmal dilatation of the aortic arch to descending thoracic aorta. The thoracic aortic arch measures 3 cm transverse. The mid descending thoracic aorta measures 3.6 cm, and the distal descending thoracic aorta measures 3.8 cm. There is moderate circumferential irregular mural thrombus throughout the descending thoracic aorta. Normal origin of the great vessels is seen. There is an incidental nodule in the lower pole of the left lobe thyroid measuring 17 mm transverse. Recommend further evaluation with dedicated thyroid ultrasound imaging based on size of the lesion and patient age. No pathologically enlarged mediastinal, hilar, or axillary lymphadenopathy seen. Visualized portion of the upper abdomen suggest fatty infiltration of the liver. No acute findings are seen. Lungs are normally aerated. No acute appearing infiltrate or consolidation is seen on today's exam. There are several less than 5 mm noncalcified nodular densities in the posterior medial right upper lobe. There are couple other small noncalcified 3 to 4 mm pulmonary nodules in the lungs bilaterally. The tracheobronchial tree is unremarkable. No significant hiatal hernia is appreciated. IMPRESSION: Mild aneurysmal dilatation of the mostly descending thoracic aorta with moderate to severe atherosclerotic disease. Irregular mostly noncalcified plaque or mural thrombus throughout the thoracic aorta is seen. Nonspecific, noncalcified pulmonary nodules are seen. Recommend follow-up low-dose noncontrast CT imaging of the chest in 6-12 months to determine long-term stability of these findings. No pulmonary infiltrate or consolidation is seen in the left lower lobe where abnormality was identified on previous chest x-rays. Electronically signed by: Delano Hernandez MD 12/04/2016 11:12 AM RADIOGRAPHIC TECHNOLOGIST
== END | disposition home or self-care (01) ==
LOC: CT 09:21
PROVIDERS: ATTEND Nurse Practitioner Family
DX: R91.8 Other nonspecific abnormal finding of lung field (principal); J44.9 Chronic obstructive pulmonary disease, unspecified

== ENCOUNTER → 2017-01-06 | Outpatient (CLI) | payer SELFPAY ==
[~2017-01-06] MED LIST: ALBUTEROL SULFATE 2.5 MG/3 ML VIAL NEB ONE
--- NOTE | 2017-01-06 12:45 | US ---
EXAM DESCRIPTION: Thyroid CLINICAL HISTORY: E04.1 . Thyroid nodules. COMPARISON: None available. TECHNIQUE: Routine sonographic imaging of the thyroid gland. FINDINGS: The right thyroid lobe measures 3.6 x 1.8 x 1.5 cm. The left thyroid lobe measures 3.4 x 2.2 x 1.8 cm. The thyroid isthmus measures 0.2 cm in thickness. The thyroid gland is heterogeneous and contains multiple solid and cystic nodules. The largest nodule in the left lobe is mostly cystic measuring 2.3 cm, with mild echogenic debris versus a solid component along the posterior aspect. The largest nodule in the right lobe measures 0.8 cm. IMPRESSION: Multinodular appearance of the thyroid. Based on size criteria, recommend further evaluation with ultrasound-guided fine-needle aspiration of the dominant 2.3 cm nodule in the left lobe. Electronically signed by: Tony Vazquez MD 01/06/2017 12:44 PM CDT
== END ==
LOC: LAB.O 08:36
PROVIDERS: ATTEND Nurse Practitioner Family
DX: E04.1 Nontoxic single thyroid nodule (principal); J44.9 Chronic obstructive pulmonary disease, unspecified

== ENCOUNTER → 2017-03-04 | Outpatient (CLI) | payer SELFPAY ==
--- NOTE | 2017-03-05 15:54 | CT ---
EXAM DESCRIPTION: Chest w/o Contrast CLINICAL HISTORY: 61 years,Female,LUNG NOD COMPARISON: December 04, 2016 TECHNIQUE: Multiple axial helical tomographic images were obtained of the chest with out IV contrast, then reconstructed in the sagittal and coronal plane. This exam was performed using radiation doses that are As Low As Reasonably Achievable (ALARA). FINDINGS: Lung kelley demonstrate a 4 mm nodule seen in the right apex. No other significant nodules are seen. No consolidations or effusions. No pneumothoraces. Mediastinum demonstrates no adenopathy or masses. Heart size and pulmonary vascularity are unremarkable. Upper abdominal organs included in the exam are unremarkable. Soft tissues and bony elements are unremarkable. The thoracic aorta has 2 small dilatations at the superior descending portion a 3.4 cm dilatation and at the gastroesophageal junction 3.7 cm dilatation. The normal size of the aorta is 2.8 cm. IMPRESSION: 4 mm nodule seen in the right apex which is stable. If the patient has no risk factors the no follow-up is required. If they do have high risk factors and a single 12 month follow-up from November should suffice. Stable mild bilobular descending thoracic aortic aneurysm Electronically signed by: Janusz Jiménez MD 03/05/2017 3:53 PM CDT
== END | disposition home or self-care (01) ==
LOC: YCFC.O 09:30
PROVIDERS: ATTEND Nurse Practitioner Family
DX: R91.8 Other nonspecific abnormal finding of lung field (principal); J44.1 Chronic obstructive pulmonary disease with (acute) exacerbation

== ENCOUNTER → 2017-09-08 | Outpatient (CLI) | payer OTHER ==
--- NOTE | 2017-09-10 14:50 | MAM ---
EXAM DESCRIPTION: 3D Screening BILATERAL : Digital Mammography. CLINICAL HISTORY: 61 years Female SCREENING . No complaints. Remote family history of breast cancer. Postmenopausal. No HRT. COMPARISON: 2-D digital screening bilateral studies 08/15/2016 and 05/30/2014. Report from prior examination also reviewed. TECHNIQUE: Bilateral CC and MLO projection full-field images, 3-D tomosynthesis digital mammographic technique. Also bilateral synthesized CC/ MLO full-field images. CAD not utilized. FINDINGS: The breast parenchymal density pattern is: Scattered areas of fibroglandular density. No skin thickening or nipple retraction. Bilateral solitary coarse calcifications and microcalcifications. No focal, stellate mass or density, focal asymmetry , and no suspicious microcalcifications bilaterally. Stable mammograms compared to prior study, taking into account differences in mammographic technique IMPRESSION: BI-RADS CATEGORY: 2 - BENIGN FINDINGS. FOLLOW UP: Routine digital bilateral screening, one year interval from August 2017. Written communication explaining the IMPRESSION and follow-up, will be mailed to the patient and referring health care provider. According to the [employer], yearly mammograms are recommended starting at age 40 and continuing as long as a woman is in good health. Any breast change noted on a breast self-exam should be reported promptly to the patient's healthcare provider. Breast MRI is recommended for women with an approximately 20-25% or greater lifetime risk of breast cancer, including women with a strong family history of breast or ovarian cancer and women who have been treated for Hodgkin's disease. A negative mammographic report should not delay tissue diagnosis in patients with significant clinical history or physical findings. Extremely dense breast tissue limits the sensitivity of digital mammography. Electronically signed by: Alexander Sarmiento MD 09/10/2017 2:48 PM [facility]
== END ==
LOC: MAMMO 09:01
PROVIDERS: ATTEND Family Medicine
DX: Z12.31 Encounter for screening mammogram for malignant neoplasm of breast (principal)
CPT/HCPCS: 77063; G0202

== ENCOUNTER 2017-09-22 16:08 | Observation (INO) | payer SELFPAY ==
--- NOTE | 2017-09-22 16:09 | HP ---
HISTORY OF PRESENT ILLNESS: This 61 year-old white female is a direct admission to the hospital from Dr. Randle's [facility]. She was seen today by him for the first time in the clinic but has been followed there in the past. She has been developing worsening shortness of breath with cough and fever for the last couple of days. They have just finished a large group of people coming over for [place] and she started getting sick right afterwards. Her condition worsened today with wheezing, fever and whitish sputum. She had difficulty talking in sentences and in the clinic had significant wheezing and diminished breath sounds. History of chronic obstructive pulmonary disease in the past with a chronic history of smoking having stopped about [address] Randle was concerned about an underlying pneumonia versus bronchitis and suggested that the patient receive specific parenteral therapy and pulmonary hygiene support in an effort to try to reverse the significance of her symptoms. She has recently had a significant pneumonia and flu process 10 and 11 months ago. PAST MEDICAL HISTORY: 1. Chronic obstructive pulmonary disease with histories of pneumonias in the past. 2. History of hypertension. 3. Sleep apnea. PAST SURGICAL HISTORY: 1. Hysterectomy in 1978. 2. Skin cancer off of her nose in 2017. 3. Colonoscopy. CURRENT MEDICATIONS: Please refer to nurses' notes for a list of verified home medications. ALLERGIES: LEVOFLOXACIN AND RANITIDINE. FAMILY HISTORY: Positive for coronary artery disease, cancer and diabetes mellitus. 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 She stopped smoking after many pack years of smoking about 8 months ago. REVIEW OF SYSTEMS: No significant weight change. Low-grade fever with chills. HEENT: No hearing or vision disturbances. LUNGS: Shortness of breath with cough and audible wheezing. CARDIOVASCULAR: No chest pains or palpitations. GASTROINTESTINAL: Appetite is diminished. No nausea, vomiting, diarrhea or blood in the stools recently. EXTREMITIES: No significant edema. She did injure her left knee recently falling off of a ladder while painting. NEUROLOGIC: No focal neurological deficits. No significant headaches recently. PHYSICAL EXAMINATION: VITAL SIGNS: Afebrile, temperature 96.4, pulse 108, respirations rapid at 32, blood pressure 141/80, pulse oximetry 98% on 2 liters with no room air saturations available at this point since she is chronically on oxygen at home. Weight is 98.3 kilos on a bed scale. GENERAL: The patient is awake and alert. Her voice is a little raspy and she has some frequent coughing. She has produced some whitish frothy sputum. Frequent coughing evident. HEENT: Unremarkable. NECK: Supple. CHEST: Lungs have some diminished breath sounds and rhonchi more so on the right base versus the left. Wheezing is more prominent on the left posterior lung. CARDIOVASCULAR: Heart tones are fairly normal though somewhat rapid. ABDOMEN: Obese yet soft with the patient preferring to lie on her side because of the degree of obesity. EXTREMITIES: Slight swelling and prominence of the left knee with tenderness upon palpation. No external evidence of significant injury at this time. No significant edema. SCD in place. NEUROLOGIC: No focal neurological deficits. LABORATORY: White count of 9,300 with 68% neutrophils, hemoglobin 13.6. Chemistries show potassium 3.4, BUN 13, glucose 109, calcium 9.3. Liver enzymes normal. Albumin 4.5. Urinalysis is generally clean. Blood cultures are pending. Influenza A and B negative. Urine culture is pending. RADIOLOGY: Chest x-ray shows no acute findings. ASSESSMENT: 1. Chronic obstructive pulmonary disease with an acute exacerbation requiring pulmonary hygiene, short course of corticosteroid antiinflammatory treatment and bronchodilator therapy. 2. Acute bronchitis, symptomatic. 3. Febrile illness. 4. Hypokalemia with supplementation initiated. 5. History of chronic tobacco abuse now stopped for the last 8 months. 6. History of sleep apnea currently on no specific treatment. 7. Obesity. 8. History of hypertension. PLAN: Continue close observation and pulmonary hygiene, and bronchodilator support to continue. Reevaluate in the morning. Close followup with [facility] when stable. Continue with outpatient therapy at that time. Will continue with Rocephin and Azithromycin pending initial response of the short course of Solu-Medrol 40 mg twice a day, and then taper rapidly down to nothing when improved. The patient has not been on prednisone recently per her home medications list. That prednisone was stopped in the distant past when she had had a previous acute exacerbation of her COPD. #[id number] [facility]
[2017-09-22] MEDS ORDERED: SODIUM CHLORIDE 0.9% 1000ML 1,000 ML IVS PRN (16:39)
[2017-09-22] MEDS ORDERED: SODIUM CHLORIDE 0.9% 1000ML 1,000 ML ONE (16:58)
[2017-09-22] MEDS ORDERED: ALUM & MAG HYDROX-SIMETHICONE 30 ML UD PO PRN (17:34)
[2017-09-22] MEDS ORDERED: TEMAZEPAM 15 MG CAP PO PRN (17:34)
[2017-09-22] MEDS ORDERED: HYDROcodone 5MG/APAP 325MG 1 EA TAB PO PRN (17:34)
[2017-09-22] MEDS ORDERED: ACETAMINOPHEN 325 MG TAB PO PRN (17:34)
[2017-09-22] MEDS ORDERED: SODIUM CHLORIDE 0.9% (FLUSH) 10 ML SYG IV PRN (17:34)
[2017-09-22] MEDS ORDERED: MAGNESIUM HYDROXIDE 30 ML UD PO PRN (17:34)
[2017-09-22] MEDS ORDERED: LEVALBUTEROL NEBS 1.25 MG/3 ML VIAL INH PRN (17:34)
[2017-09-22] MEDS ORDERED: BENZONATATE PERLES 100 MG CAP PO PRN (17:41)
[2017-09-22] MEDS ORDERED: DEXAMETHASONE INJ 2 MG, SODIUM CHLORIDE 0.9% NEB 3 ML NEB ONE ×2 (17:43)
--- NOTE | 2017-09-22 17:45 | PCM.CORE ---
Physician DVT/VTE - Nurse DVT Assessment & Total Each Risk Factor Represents 3 Points: Hx of DVT/PE Each Risk Factor Represents 2 Points: Age 60-74 Each Risk Factor is 1 Point: Obesity (BMI >25) DVT Assessment Score: 6 - 5 or more Very High Risk Treatments: Sequential Compression Device Pharmacological: Enoxaparin 40mg SQ Daily
--- NOTE | 2017-09-22 17:46 | RAD ---
EXAM DESCRIPTION: Chest,2 Views CLINICAL HISTORY: COPD, SOB COMPARISON: 11/07/2016 FINDINGS: Two views of the chest are submitted. Cardiac silhouette appears normal. No focal parenchymal or pleural disease. No acute bony abnormality. There is no significant pulmonary vascular engorgement. IMPRESSION: No evidence of acute cardiopulmonary disease. Electronically signed by: Alexander Rai 09/22/2017 5:45 PM BATHROOM TILING PROFESSIONAL
[2017-09-22] MEDS ORDERED: IV SET AND CAP CHANGE INJ INJ SCH (18:00)
[2017-09-22] MEDS ORDERED: SODIUM CHL 0.9% 50ML MIN-BAG+ 50 ML IVPB ONE (18:29)
[2017-09-22] MEDS ORDERED: cefTRIAXone SODIUM 1 GM VIAL ONE (18:29)
[2017-09-22] MEDS: ENOXAPARIN SODIUM 40 MG/0.4 ML SYG SUBCU SCH (18:34)
[2017-09-22] MEDS: methylPREDNISolone SODIUM SUC 40 MG/ML VIAL IV SCH (18:35)
[2017-09-22] MEDS: cefTRIAXone SODIUM 1 GM in SODIUM CHL 0.9% 50ML MIN-BAG+ 50 ML IVPB SCH (18:35)
[2017-09-22] MEDS: AZITHROMYCIN 250 MG TAB PO SCH (18:36)
[2017-09-22] MEDS: IPRATROPIUM/ALBUTEROL 3 ML VIAL INH SCH ×2 (20:00→20:48)
[2017-09-22] MEDS ORDERED: DEXAMETHASONE INJ 4 MG/ML VIAL ONE (20:35)
[2017-09-22] MEDS: POTASSIUM CHLORIDE 10 MEQ TAB PO SCH (20:55)
[2017-09-23] MEDS: KCL 20 MEQ/NS 1,000 ML IVS PRN ×2 (02:26→15:31)
[2017-09-23] MEDS ORDERED: SODIUM CHL 0.9% 50ML MIN-BAG+ 50 ML IVPB ONE ×2 (02:43→16:25)
[2017-09-23] MEDS ORDERED: cefTRIAXone SODIUM 1 GM VIAL ONE ×2 (02:43→16:26)
[2017-09-23] MEDS: cefTRIAXone SODIUM 1 GM in SODIUM CHL 0.9% 50ML MIN-BAG+ 50 ML IVPB SCH ×2 (05:47→17:43)
[2017-09-23] MEDS: methylPREDNISolone SODIUM SUC 40 MG/ML VIAL IV SCH ×2 (05:47→17:43)
[2017-09-23] MEDS: OMEPRAZOLE CAP 20 MG CAP PO SCH (06:08)
[2017-09-23] MEDS: IPRATROPIUM/ALBUTEROL 3 ML VIAL NEB SCH ×4 (07:57→19:30)
[2017-09-23] MEDS ORDERED: LEVALBUTEROL NEBS 1.25 MG/3 ML VIAL NEB PRN (08:00)
[2017-09-23] MEDS: amLODIPine BESYLATE 5 MG TAB PO SCH (09:24)
[2017-09-23] MEDS: ASPIRIN (CHEWABLE) 81 MG TAB PO SCH (09:24)
[2017-09-23] MEDS: POTASSIUM CHLORIDE 10 MEQ TAB PO SCH ×2 (09:24→16:32)
[2017-09-23] MEDS: ENOXAPARIN SODIUM 40 MG/0.4 ML SYG SUBCU SCH (17:43)
[2017-09-23] MEDS: AZITHROMYCIN 250 MG TAB PO SCH (17:43)
--- NOTE | 2017-09-23 18:27 | PN ---
DATE: 09/23/17 SUPERVISING PHYSICIAN: Jean-Claude Chirinos MD SUBJECTIVE: The patient says she feels about 50% better but continues to be short of breath even at rest. You can hear some obvious wheezing without a stethoscope. She has been afebrile since admission. OBJECTIVE: VITAL SIGNS: Temperature 97.2, pulse 85, blood pressure 135/81, respirations 20, satting 95% on nasal cannula at rest. I's and O's show a positive balance of 925 with 1475 in, 550 out. She has had 1 bowel movement. Weight 98.4 kg. CHEST: Lung sounds remain diminished throughout with obvious wheezing with being more prominent on the left than the right with just very faint rhonchi bilaterally. HEART: Slightly irregular rate and rhythm. ABDOMEN : Obese but soft, non-tender with positive bowel sounds. EXTREMITIES: No clubbing, cyanosis or edema. NEUROLOGIC: She is alert and oriented times three. LABORATORY: White count remains within normal limits at 7,700 with no differential shift. Electrolytes show to be within normal limits with potassium 4.7, BUN 11, creatinine 0.66, calcium 8.8. MICROBIOLOGY: Sputum culture is pending. Urine culture preliminary at 24 hours shows no growth. Blood cultures remain negative. Influenza swabs A and B by PCR were negative on admission. RADIOLOGY: No chest x-ray was repeated today. Will plan to do one in the morning. ASSESSMENT: 1. Chronic obstructive pulmonary disease with acute exacerbation requiring initiation of pulmonary hygiene along with a short course of corticosteroids and antiinflammatory treatment as well as bronchodilator treatment showing slow improvement requiring additional dosing of corticosteroids. 2. Acute bronchitis, symptomatic with slow improvement. 3. Febrile illness. 4. Hypokalemia on supplementation with correction. 5. History of chronic tobacco abuse having stopped 8 months previously. 6. History of sleep apnea. 7. Obesity. 8. History of hypertension. PLAN: Will continue with observation and aggressive pulmonary hygiene, and plan to go ahead and continue with additional doses of Solu-Medrol. I will change her to every 6 hours at 40 mg which means she will get an 1800 dose today as well as one at midnight and one in the morning. Will plan to reassess in the morning. Will go ahead and repeat an x-ray in the morning. Her labs were normal yesterday and today. We will not repeat those. Until discharge, with anticipation of discharging tomorrow, will continue to monitor and treat closely. Dr. Holland is available for consultation. #[id number] [facility]
[2017-09-24] MEDS ORDERED: SODIUM CHL 0.9% 50ML MIN-BAG+ 50 ML IVPB ONE (00:17)
[2017-09-24] MEDS ORDERED: cefTRIAXone SODIUM 1 GM VIAL ONE (00:18)
[2017-09-24] MEDS: methylPREDNISolone SODIUM SUC 40 MG/ML VIAL IV SCH ×2 (00:26→06:05)
[2017-09-24 02:35] VITALS: TEMP 98.6
[2017-09-24] MEDS: KCL 20 MEQ/NS 1,000 ML IVS PRN (04:10)
[2017-09-24 06:06] VITALS: BP 109/71
[2017-09-24] MEDS: cefTRIAXone SODIUM 1 GM in SODIUM CHL 0.9% 50ML MIN-BAG+ 50 ML IVPB SCH (06:08)
[2017-09-24] MEDS: OMEPRAZOLE CAP 20 MG CAP PO SCH (06:08)
--- NOTE | 2017-09-24 07:23 | RAD ---
EXAM DESCRIPTION: XR CHEST 2 VIEWS CLINICAL HISTORY: COPD COMPARISON: 09/22/2017 TECHNIQUE: PA/lateral FINDINGS: Heart size is normal. The lungs are clear. No acute bony abnormality. IMPRESSION: No acute cardiopulmonary process. Electronically signed by: Jose Lal MD 09/24/2017 7:22 AM [facility]
[2017-09-24] MEDS: IPRATROPIUM/ALBUTEROL 3 ML VIAL NEB SCH (08:00)
[2017-09-24] MEDS: ASPIRIN (CHEWABLE) 81 MG TAB PO SCH (08:43)
[2017-09-24] MEDS: amLODIPine BESYLATE 5 MG TAB PO SCH (08:44)
[2017-09-24] MEDS: POTASSIUM CHLORIDE 10 MEQ TAB PO SCH (08:44)
[2017-09-24 10:56] VITALS: O2SAT 98
== END 2017-09-24 11:55 | disposition home or self-care (01) ==
LOC: MS 16:08
PROVIDERS: ADMIT Emergency Medicine; ATTEND Nurse Practitioner Family
DX: J44.1 Chronic obstructive pulmonary disease with (acute) exacerbation (principal); J20.9 Acute bronchitis, unspecified; J44.0 Chronic obstructive pulmonary disease with (acute) lower respiratory infection; R50.81 Fever presenting with conditions classified elsewhere; E87.6 Hypokalemia; G47.30 Sleep apnea, unspecified; E66.9 Obesity, unspecified; I10 Essential (primary) hypertension; Z79.51 Long term (current) use of inhaled steroids; Z79.82 Long term (current) use of aspirin; Z79.899 Other long term (current) drug therapy; Z88.3 Allergy status to other anti-infective agents; Z88.8 Allergy status to other drugs, medicaments and biological substances; Z87.891 Personal history of nicotine dependence; Z68.39 Body mass index [BMI] 39.0-39.9, adult
CPT/HCPCS: 36415 ×2; 71020 ×2; 80048; 80053; 81001; 85025 ×2; 87040 ×2; 87070; 87086; 87804; 94640 ×7; 94760 ×6; 96361 ×2; 96365; 96366 ×2; 96367; 96372 ×2; 96375; 96376 ×2; G0378; J0696 ×4; J1030 ×5; J1100; J1650 ×2; J3480 ×3; J7030; J7050 ×4; J7614; J7620 ×6; Q0144 ×2

== ENCOUNTER → 2018-08-06 | Outpatient (CLI) | payer MEDICARE ==
--- NOTE | 2018-08-06 13:03 | RAD ---
EXAM DESCRIPTION: Chest,2 Views CLINICAL HISTORY: COPD COMPARISON: Previous study September 24, 2017 TECHNIQUE: PA/lateral FINDINGS: There is no acute appearing cardiac or pulmonary abnormality. Heart size is normal with normal pulmonary vascularity. No pleural effusion or pneumothorax. Lungs are clear with no consolidating infiltrate. Lateral view shows intact sternum and T-spine. IMPRESSION: No acute process is identified in the chest. Electronically signed by: Bart Peguero MD 08/06/2018 1:[address] SUPERVISOR
== END ==
LOC: RAD 09:30
PROVIDERS: ATTEND Internal Medicine Pulmonary Disease
DX: J44.9 Chronic obstructive pulmonary disease, unspecified (principal)

== ENCOUNTER → 2019-04-11 | Outpatient (CLI) | payer MEDICARE, OTHER ==
--- NOTE | 2019-04-11 14:09 | RAD ---
Findings: Number of images: Six Location: Cervical spine C1-C4 are demonstrated on the lateral radiograph. Evaluation is limited by overlying soft tissues. The prevertebral soft tissues are grossly unremarkable. Moderate multilevel spondylosis with disc space narrowing, marginal osteophytes and facet/uncinate process hypertrophy. Visualized lung apices are unremarkable. IMPRESSION: Moderate multilevel cervical spondylosis. Electronically signed by: Dino Trinh MD 04/11/2019 2:06 PM CDT
--- NOTE | 2019-04-11 14:11 | RAD ---
Findings: Number of images: Five Location: Lumbar spine Five nonrib-bearing vertebral bodies. No acute fracture. No subluxation. Vertebral body heights are maintained. Diffuse atherosclerotic plaque in the abdominal aorta. Multilevel disc space narrowing, osteophytosis and facet hypertrophy. Evaluation limited by osteopenia. Soft tissues are otherwise unremarkable. IMPRESSION: Moderate multilevel lumbar spondylosis. Electronically signed by: Dino Trinh MD 04/11/2019 2:09 PM CDT
== END ==
LOC: RAD 11:22
PROVIDERS: ATTEND Nurse Practitioner Family
DX: M47.892 Other spondylosis, cervical region (principal); M47.896 Other spondylosis, lumbar region

== ENCOUNTER → 2019-05-20 | Outpatient (CLI) | payer MEDICARE, OTHER ==
--- NOTE | 2019-05-20 13:48 | US ---
EXAM DESCRIPTION: Renal CLINICAL HISTORY: 63 years Female, CYST OF KIDNEY AND SMALL LEFT RENAL LESION COMPARISON: None. TECHNIQUE: Retroperitoneal sonogram was performed to evaluate the kidneys and bladder. FINDINGS: Right kidney Right renal length is 9.2 cm. Renal cortical thickness and echogenicity are normal. No right renal mass, cyst or shadowing stone. No hydronephrosis. Left kidney Left renal length is 11.5 cm. Renal cortical thickness and echogenicity are normal. No left renal mass or shadowing stone. Question small cyst at the upper pole 1.9 cm but resolution is limited. No small upper parapelvic cyst measures 1.4 cm. No hydronephrosis. Urinary bladder No images of the bladder were obtained for this exam. IMPRESSION: Small left renal cysts. Otherwise normal sonographic appearance of the kidneys. Electronically signed by: Bart Peguero MD 05/20/2019 1:46 PM CDT
== END ==
LOC: US 08:30
PROVIDERS: ATTEND Nurse Practitioner Family
DX: N28.1 Cyst of kidney, acquired (principal)

== ENCOUNTER → 2019-06-03 | Outpatient (CLI) | payer MEDICARE, OTHER ==
--- NOTE | 2019-06-04 06:02 | US ---
EXAM DESCRIPTION: Gall Bladder: ULTRASOUND. CLINICAL HISTORY: ENCOUNTER FOR SCREENING OF DIGESTIVE DISORDERS COMPARISON: Renal ultrasound 05/20/2019. TECHNIQUE: Transabdominal scanning: Hernandes-scale and Doppler modes.. Study limitations due to patient large body habitus. FINDINGS: Gallbladder: Normal size with multiple small layering gallstones with acoustic shadowing. Largest stones diameter 12 mm and 10 mm. No fluid around the gallbladder. No wall thickening. 2.4 mm. Non-tender with transducer pressure. Common bile duct: caliber 4.3 mm within normal limits. Liver: Increased echogenicity; very dense and limited visualization of the posterior liver and capsule. Contour liver capsule smooth where seen. No fluid around the liver. Intrahepatic biliary ducts normal caliber. Doppler hepatopedal flow portal vein.. Long axis right lobe 15.8 cm Pancreas: normal size and echogenicity. Duct not seen. Aorta: Proximal diameter 2 cm is normal limits. Right kidney: See previous study.. IMPRESSION: 1. Steatosis of the liver, very dense and difficult visualization posterior liver. Smooth capsule where seen. Normal vascular flow and normal caliber ducts. No ascites. Pancreas unremarkable. Limited visualization also due to patient body habitus 2. Multiple mobile gallstones with no surrounding fluid. No wall thickening. Nontender with transducer pressure. Normal caliber of the proximal abdominal aorta and IVC. Electronically signed by: Alexander Sarmiento MD 06/04/2019 6:01 AM CDT
== END ==
LOC: US 08:30
PROVIDERS: ATTEND Nurse Practitioner Family
DX: Z13.818 Encounter for screening for other digestive system disorders (principal); K76.0 Fatty (change of) liver, not elsewhere classified; K80.20 Calculus of gallbladder without cholecystitis without obstruction

== ENCOUNTER 2019-06-29 05:43 | Day surgery (SDC) | payer MEDICARE, OTHER ==
[2019-06-29] MEDS ORDERED: LACTATED RINGERS 1,000 ML ONE (06:01)
--- NOTE | 2019-06-29 09:06 | OP ---
DATE OF PROCEDURE: 06/29/19 PREOPERATIVE DIAGNOSIS: 1. High risk colon cancer screen, the patient has a family history of colon cancer in a brother. Last colonoscopy was over 10 years ago. POSTOPERATIVE DIAGNOSIS: 1. Left sided diverticulosis. 2. Internal hemorrhoids. PROCEDURE: 1. Colonoscopy. SURGEON: Brian Cash MD. COMPLICATIONS: None apparent. BLOOD LOSS: None. MEDICATIONS: Monitored anesthesia care. DESCRIPTION OF PROCEDURE: Informed consent was obtained prior to sedation. The preprocedure cardiopulmonary assessment was satisfactory. The patient was placed in the left lateral decubitus position and was sedated. A digital rectal exam was unremarkable. The tip of the Olympus colonoscope was inserted in the rectum and guided over to the cecum. The cecum was identified by locating the ileocecal valve and appendiceal orifice. The distal terminal ileum was inspected and was unremarkable. A retroflexed view of the right colon was obtained and no polyps were seen behind any of the examined folds. The mucosa of the cecum, ascending colon, hepatic flexure, transverse colon, splenic flexure, descending colon and sigmoid colon was closely examined. Direct and retroflexed views of the rectum were obtained. The patient had left sided diverticulosis and internal hemorrhoids. Otherwise, the colonoscopy was unremarkable. RECOMMENDATIONS: 1. Followup colonoscopy in 5 years due to her family history . 2. Followup withorion etienne in the office p.r.n. #[id number] cc: KRUNAL Miller
[2019-06-29] MEDS ORDERED: LIDOCAINE 1% 10 ML VIAL INJ ONE (10:00)
[2019-06-29] MEDS ORDERED: PROPOFOL 200 MG/20 ML VIAL IV ONE (10:00)
[2019-06-29 15:11] VITALS: BP 133/80; TEMP 97.4; O2SAT 98
== END 2019-06-29 09:30 | disposition home or self-care (01) ==
LOC: AMB 05:43
PROVIDERS: ATTEND Internal Medicine Gastroenterology
DX: Z12.11 Encounter for screening for malignant neoplasm of colon (principal); K57.30 Diverticulosis of large intestine without perforation or abscess without bleeding; K64.8 Other hemorrhoids; I10 Essential (primary) hypertension; Z80.0 Family history of malignant neoplasm of digestive organs; Z90.710 Acquired absence of both cervix and uterus; Z88.8 Allergy status to other drugs, medicaments and biological substances
CPT/HCPCS: 00812; G0105; J3490; J7120

== ENCOUNTER 2019-10-24 05:42 | Day surgery (SDC) | payer MEDICARE, OTHER ==
[2019-10-24] MEDS ORDERED: TROP 1%/CYCLOPEN 1%/PHENYL 2% DROPS ONE (06:33)
[2019-10-24] MEDS ORDERED: PROPARACAINE 0.5% OPHTH SOL 15 ML BTTL ONE (06:33)
[2019-10-24] MEDS ORDERED: MOXIFLOXACIN HCL (OPHTH) 1 DROP DROPS ONE (06:33)
[2019-10-24] MEDS ORDERED: BRIMONIDINE 0.2% OPHTH DROPS LEFT_EYE ONE (09:42)
[2019-10-24] MEDS ORDERED: LIDOCAINE 1% 2 ML VIAL INJ ONE (09:42)
[2019-10-24] MEDS ORDERED: MOXIFLOXACIN HCL (OPHTH) 1 DROP DROPS LEFT_EYE ONE (09:42)
[2019-10-24] MEDS ORDERED: TOBRAMYCIN SULF 0.3 % OPHTH OINT 1 APPLIC LEFT_EYE ONE (09:42)
[2019-10-24] MEDS ORDERED: MIDAZOLAM INJ 2 MG/2 ML VIAL ONE (09:42)
[2019-10-24] MEDS ORDERED: DEXAMETHASONE 0.1% OPHTH SOL 1 DROP LEFT_EYE ONE (09:42)
[2019-10-24] MEDS ORDERED: PROPARACAINE 0.5% OPHTH SOL 15 ML BTTL LEFT_EYE ONE (09:42)
== END 2019-10-24 10:57 | disposition home or self-care (01) ==
LOC: AMB 05:42
PROVIDERS: ATTEND Ophthalmology
DX: H25.012 Cortical age-related cataract, left eye (principal); Z88.8 Allergy status to other drugs, medicaments and biological substances; Z79.899 Other long term (current) drug therapy
CPT/HCPCS: 00142; 66984; J2250

== ENCOUNTER → 2020-02-24 | Outpatient (CLI) | payer MEDICARE, OTHER ==
--- NOTE | 2020-02-25 18:31 | RAD ---
EXAM DESCRIPTION: Knee,Left Complete (accession [id number]), Knee,Right Complete (accession [id number]): CR/DR/XR. CLINICAL HISTORY: 64 years FemaleOSTEOARTHRITIS COMPARISON: None. TECHNIQUE: three views each knee, AP, lateral, and patellar sunrise view FINDINGS: Left knee: Minimally decreased bone density. Radiodense object abutting the medial condyle and the insertion of the medial collateral ligament. With medial soft tissue swelling. Medial compartment narrowing. Medial and lateral marginal spurs. Sclerosis proximal tibiofibular joint. Minimal narrowing lateral patellofemoral joint with lateral patellar tilt. Patellofemoral subchondral degeneration and radiolucencies. Superior marginal spur on the patella. Minimal superior patellar effusion. Posterior joint effusion. Posterior vascular calcifications. Right knee: Medial and lateral compartments are symmetric. Minimally decreased bone density. Posterior effusion. Superior right patellar spur. Radiodense object abutting the lateral patella and patellofemoral joint which is minimally narrowed compared to the medial joint. Posterior vascular calcifications. IMPRESSION: 1. Minimally decreased bone density left knee. Lateral patellar joint space narrowing. Medial and lateral patellofemoral subchondral radiolucencies from moderate arthrosis. Radiodense body abutting the medial condyle above the articular surface could represent an avulsion injury associated with the medial collateral ligament. Suprapatellar effusion and posterior joint effusion. 2. Radiodense loose body versus ossicle abutting the lateral patella. Lateral patellar joint with minimal arthrosis. Posterior joint effusion. Minimal loss of bone density. Electronically signed by: Alexander Sarmiento MD 02/25/2020 6:29 PM CDT
--- NOTE | 2020-02-25 18:31 | RAD ---
EXAM DESCRIPTION: Knee,Left Complete (accession [id number]), Knee,Right Complete (accession [id number]): CR/DR/XR. CLINICAL HISTORY: 64 years FemaleOSTEOARTHRITIS COMPARISON: None. TECHNIQUE: three views each knee, AP, lateral, and patellar sunrise view FINDINGS: Left knee: Minimally decreased bone density. Radiodense object abutting the medial condyle and the insertion of the medial collateral ligament. With medial soft tissue swelling. Medial compartment narrowing. Medial and lateral marginal spurs. Sclerosis proximal tibiofibular joint. Minimal narrowing lateral patellofemoral joint with lateral patellar tilt. Patellofemoral subchondral degeneration and radiolucencies. Superior marginal spur on the patella. Minimal superior patellar effusion. Posterior joint effusion. Posterior vascular calcifications. Right knee: Medial and lateral compartments are symmetric. Minimally decreased bone density. Posterior effusion. Superior right patellar spur. Radiodense object abutting the lateral patella and patellofemoral joint which is minimally narrowed compared to the medial joint. Posterior vascular calcifications. IMPRESSION: 1. Minimally decreased bone density left knee. Lateral patellar joint space narrowing. Medial and lateral patellofemoral subchondral radiolucencies from moderate arthrosis. Radiodense body abutting the medial condyle above the articular surface could represent an avulsion injury associated with the medial collateral ligament. Suprapatellar effusion and posterior joint effusion. 2. Radiodense loose body versus ossicle abutting the lateral patella. Lateral patellar joint with minimal arthrosis. Posterior joint effusion. Minimal loss of bone density. Electronically signed by: Alexander Sarmiento MD 02/25/2020 6:29 PM CDT
--- NOTE | 2020-02-27 14:56 | MAM ---
EXAM DESCRIPTION: 3D Screening BILATERAL : Digital Mammography. CLINICAL HISTORY: 64 years Female SCREENING . No complaints. No personal history of breast cancer. Remote family history of breast cancer. Menarche age 10. Childbirth age 14. Menopause age 43. No HRT. Lifetime risk of developing breast cancer (Tyrer-Cuzick model)(%): 4.4. COMPARISON: Bilateral screening digital breast tomosynthesis January 2019 and August 2017. TECHNIQUE: Bilateral CC and MLO projection full-field images, digital tomosynthesis mammographic technique. Bilateral digital 2-D full-field MLO images. CAD available for 2-D images. FINDINGS: The breast parenchymal density pattern is: Scattered areas of fibroglandular density. No skin thickening or nipple retraction. Solitary microcalcifications. Coarse calcification posterior mid right breast. No new focal, stellate mass or density, focal asymmetry , and no suspicious microcalcifications bilaterally. Stable mammograms compared to prior study. IMPRESSION: Benign exam. BIRAD CATEGORY: 2 BENIGN FINDINGS. RECOMMENDATIONS: FOLLOW UP: Routine digital bilateral mammographic screening, one year interval from January 2020. Written communication explaining the IMPRESSION and follow-up, will be mailed to the patient and referring health care provider. According to the [employer], yearly mammograms are recommended starting at age 40 and continuing as long as a woman is in good health. Any breast change noted on a breast self-exam should be reported promptly to the patient's healthcare provider. Breast MRI is recommended for women with an approximately 20-25% or greater lifetime risk of breast cancer, including women with a strong family history of breast or ovarian cancer and women who have been treated for Hodgkin's disease. A negative mammographic report should not delay tissue diagnosis in patients with significant clinical history or physical findings. Extremely dense breast tissue limits the sensitivity of digital mammography. Electronically signed by: Alexander Sarmiento MD 02/27/2020 2:54 PM CDT
== END ==
LOC: MAMMO 11:00
PROVIDERS: ATTEND Nurse Practitioner Family
DX: Z12.31 Encounter for screening mammogram for malignant neoplasm of breast (principal); M17.11 Unilateral primary osteoarthritis, right knee; M17.12 Unilateral primary osteoarthritis, left knee; M85.861 Other specified disorders of bone density and structure, right lower leg; M85.862 Other specified disorders of bone density and structure, left lower leg; M25.461 Effusion, right knee; M25.462 Effusion, left knee

== ENCOUNTER → 2020-03-15 | Outpatient (CLI) | payer MEDICARE, OTHER ==
--- NOTE | 2020-03-15 14:56 | RAD ---
Frontal and sunrise views of the left knee. Indication: PAIN IN LEFT KNEE 45 AND SUNRISE Comparison: None. Impression: Moderate to severe tricompartment osteoarthritis of the left knee with joint space narrowing and osteophytes. Small ossification within the proximal MCL indicating a remote avulsive injury. No appreciable acute fracture identified. Electronically signed by: Matt Osborne MD 03/15/2020 2:54 PM CDT
--- NOTE | 2020-03-15 14:57 | RAD ---
Single frontal radiograph pelvis Indication: HIP PAIN RIGHT AND LEFT Comparison: None. Impression: No acute fracture identified. Evaluation for fracture is limited given the degree of osteopenia. If high clinical concern for acute fracture, correlation with MRI recommended given its greater sensitivity in the osteopenic patient. If the patient cannot tolerate MRI imaging or more urgent imaging is required, CT could be performed, however it is less sensitive in the osteopenic patient when compared to MRI. Mild to moderate bilateral hip osteoarthritis present with joint space narrowing and small joint line osteophytes. Mild pubic symphysis osteoarthritis present as well. Lower lumbar disk disease. Osteopenia. If this is a new finding, DEXA scan recommended as well as evaluation for possible osteoporosis treatment. Electronically signed by: Matt Osborne MD 03/15/2020 2:55 PM CDT
--- NOTE | 2020-03-15 14:57 | RAD ---
EXAM DESCRIPTION: Knee,Right 1 or 2 Views CLINICAL HISTORY: 64 years Female, PAIN IN RIGHT KNEE 45 AND SUNRISE COMPARISON: 02/24/2020 Findings: Two view(s)/radiograph(s) Osteopenia. Mild medial compartment narrowing. Lateral patellofemoral narrowing. No acute fracture or dislocation. No lateral radiograph to evaluate joint effusion. IMPRESSION: Similar osteoarthritis of the right knee. Electronically signed by: Dino Trinh MD 03/15/2020 2:55 PM CDT
== END ==
LOC: RAD 08:30
PROVIDERS: ATTEND Orthopaedic Surgery
DX: M17.12 Unilateral primary osteoarthritis, left knee (principal); M17.11 Unilateral primary osteoarthritis, right knee; M85.859 Other specified disorders of bone density and structure, unspecified thigh; M51.36 Other intervertebral disc degeneration, lumbar region